=== PATIENT | female | born 1960 | race Caucasian/White ===

== ENCOUNTER 2025-01-02 15:02 | Outpatient (CLI) | payer BC, SELFPAY ==
--- NOTE | 2025-01-02 15:30 | ECG_ITS ---
Test Date: 2025-01-02 15:16:31 Measurements Intervals [facility] Rate: 82 P: 62 OK: 144 QRS: 18 QRSD: 82 T: 19 QT: 344 QTc: 404 Interpretive Statements SINUS RHYTHM EARLY PRECORDIAL R/S TRANSITION LOW QRS VOLTAGE IN PRECORDIAL LEAD BORDERLINE ST-T WAVE ABNORMALITY- ANT/INF LEADS BASELINE ARTIFACT- I, II, III, AVR, AVL, AVF BORDERLINE ECG No previous ECG available for comparison Electronically Signed On 01-02-2025 15:21:47 SENIOR SOUS CHEF by Balaji Kelley D.O.
[2025-01-02 15:53] LABS: Anion Gap 8 mmol/L (4-12); Blood Urea Nitrogen 19 mg/dL (7-17); Carbon Dioxide 30 mmol/L (22-30); Chloride 100 mmol/L (98-107); Estimated Glomerular Filt Rate 51; Glucose 47 mg/dL (65-110); Potassium 4.1 mmol/L (3.4-5.0); Sodium 138 mmol/L (137-145)
--- OUTSIDE RECORDS SUMMARY | 2025-01-02 17:53 | XMS_ITS | Patient Health Record ---
Author Organization [facility] Address [address], [place] [address] Support Name Relationship Address Phone Brittnee Vargas Guarantor Unknown [phone] Reason For Referral No Information Medications Medication SIG (Take, Route, Frequency, Duration) Notes Start Date End Date Status Levothyroxine Sodium 88 MCG TAKE ONE TABLET BY MOUTH ONCE DAILY Oral 03/01/2015 Active Aspirin 81 81 MG take 1 tablet (81 mg) by oral route once daily Oral 1 for 90 Active Vitamin D3 1000 UNIT take 1 capsule by oral route daily Oral 1 for 90 *Pick strength-form from [employer] for eRX* Active metFORMIN HCl ER 500 MG TAKE FOUR TABLETS BY MOUTH EVERY DAY Oral 02/19/2015 Active Acidophilus take 1 capsule by oral route daily Oral 1 for 90 Active Immunizations Vaccine Route Administration Date Status Comme nts Infuenza, trivalent, recombinant, preservative free Unknown 09/22/2005 Administered migrated LegPa tid= [id number] Date=09/22/2005 Vac= Influenza Problems Problem Type SNOMED Code ICD Code Onset Dates Problem Status W/U Status Risk Notes Problem Hypothyroidism (53798179) Hypothyroidism, unspecified (E03.9) Active confirmed Problem Vitamin D deficiency (07527829) Vitamin D deficiency, unspecified (E55.9) 08/05/20 12 Active confirmed Problem Type II diabetes mellitus without complication (932847034) Type 2 diabetes mellitus without complications (E11.9) 02/02/20 05 Active confirmed Problem Hyperlipidemia (55847763) Hyperlipidemia, unspecified (E78.5) 08/05/20 12 Active confirmed Plan Of Treatment No Information Insurance Providers Payer Name Payer Address Payer Phone Subscriber Number Group Number Insured Name Patient Relationship to Insured Coverage Start Date Coverage End Date DO NOT USE [id number] Brittnee Vargas Self - patient is the insured 5 [facility] [employer] [address] [place] [address] [id number] AliciaBrittnee Self - patient is the insured 2 4 DO NOT USE [id number] AliciaBrittnee Self - patient is the insured 1 DO NOT USE [id number] AliciaBrittnee Self - patient is the insured
--- OUTSIDE RECORDS SUMMARY | 2025-01-02 17:54 | XMS_ITS | Clinical Summary ---
Author Organization [facility] Address [address] [place] [address] Care Team Providers Care Spanish Language Lecturer Name Role Phone Izabella Pan THREAD MACHINE OPERATOR Primary Care Provider Allergies Active Allergy Reactions Criticality Noted Date Comments Sulfa Antibiotics Vomiting,Unknown 02/01/2005 Medications glipiZIDE XL 2.5 MG 24 hr tablet TAKE 2 TABLETS BY MOUTH ONCE DAILY IN THE MORNING 06/20/20 20 Active RELION PEN NEEDLES 32G X 4 MM Misc daily. 06/13/20 20 Active INSULIN SYRINGE .5CC/29G 29G X 1/2 0.5 ML Misc 08/05/20 12 Active levothyroxine 88 MCG tablet Take 1 tablet (88 mcg total) by mouth daily. 06/13/20 Active metFORMIN ER 500 MG 24 hr tablet Take 4 tablets (2,000 mg total) by mouth daily. 06/20/20 20 Active insulin glargine 100 UNIT/ML injection (PEN) Inject 22 Units into the skin nightly at bedtime. Takes in the morning Active vitamin D3, cholecalcifer ol, 1000 UNIT Tab tablet Take 1 tablet (25 mcg total) by mouth daily. Active LEVEMIR FLEXPEN 100 UNIT/ML PEN INJECT 22 UNITS SUBCUTANEOUSLY IN THE MORNING 11/26/19 24 Active ondansetron (ZOFRAN) 4 MG tabletIndicat ions:Nausea Take 1 tablet (4 mg total) by mouth every 8 (eight) hours as needed for Nausea. 10 tablet 09/13/20 24 Active meclizine (ANTIVERT) 25 MG tabletIndicat ions:Episodic peripheral vertigo Take 1 tablet (25 mg total) by mouth every 8 (eight) hours as needed (vertigo). 30 tablet 11/03/20 24 Active cefdinir (OMNICEF) 300 MG Cap capsule Take 1 capsule (300 mg total) by mouth 2 (two) times daily. 20 capsule 11/03/20 24 2024 Discontinued cephALEXin (KEFLEX) 500 MG capsuleIndica tions:Acute cystitis with hematuria Take 1 capsule (500 mg total) by mouth 2 (two) times daily for 3 days. 6 capsule 12/05/19 25 2024 Active Problems Problem Noted Date Diagnosed Date Hypothyroidism 12/03/2012 Type 2 diabetes mellitus ([facility]) 12/03 Encounters Date Type Department Care Team Description 12/06/2024 2:06 PM FIXED INCOME TRADING VICE PRESIDENT - 12/06/2024 11:59 PM FIXED INCOME TRADING VICE PRESIDENT Hospital Encounter [facility] [address] [address] Hector Ho MD Discharge Disposition: Home or Self Care (Routine Discharge) 12/05/2024 2:00 PM FIXED INCOME TRADING VICE PRESIDENT Office Visit [facility] [address] [place] [address] Hector Ho MD Urine (Pt is here for a possible UTI) 12/05/2024 Travel 11/17/2024 11:08 AM FIXED INCOME TRADING VICE PRESIDENT - 11/17/2024 11:59 PM FIXED INCOME TRADING VICE PRESIDENT Hospital Encounter [facility] [address] [place] [address] Izabella Pan FNP Discharge Disposition: Home or Self Care (Routine Discharge) 11/17/2024 Travel 11/15/2024 Telephone [facility] [address] [place] [address] Izabella Pan FNP Question 11/03/2024 6:09 AM FIXED INCOME TRADING VICE PRESIDENT - 11/03/2024 9:44 AM FIXED INCOME TRADING VICE PRESIDENT Emergency [facility] [address] [place] [address] Camilo Meier MD Gomez, Philip Gabriel, MD Back Pain (Abdominal pain) Discharge Disposition: Home or Self Care (Routine Discharge) 11/03/2024 Telephone [facility] [address] [place] [address] Izabella Pan FNP Work Excuse (Work excuse note) 11/03/2024 Travel 11/01/2024 2:34 PM FIXED INCOME TRADING VICE PRESIDENT - 11/01/2024 11:59 PM FIXED INCOME TRADING VICE PRESIDENT Hospital Encounter [facility] [address] [place] [address] Linda Simons FNP Discharge Disposition: Home or Self Care (Routine Discharge) 10/31/2024 4:20 PM FIXED INCOME TRADING VICE PRESIDENT Office Visit [address] [place] [address] Linda Simons FNP Back Pain; Dysuria (4 days//Pt started AZO 3 days ago. Took it yesterday morning for the last time. ) 10/31/2024 Travel 10/10/[address] [place] [address] Izabella aPn FNP Returned Call 10/07/2024 5:15 AM FIXED INCOME TRADING VICE PRESIDENT - 10/07/2024 11:59 PM FIXED INCOME TRADING VICE PRESIDENT Hospital Encounter [facility] [address] [place] [address] Izabella Pan FNP Discharge Disposition: Home or Self Care (Routine Discharge) 10/06/2024 1:20 PM FIXED INCOME TRADING VICE PRESIDENT Office Visit [address] [place] [address] Izabella Pan FNP Burning With Urination (Burning with urination, started today, some chills, no other symptoms) 10/06/2024 Travel 10/06/[address] [place] [address] Izabella Pan FNP Concerns from Last 3 Months Immunizations Name Administration Dates Next Due Influenza (Generic) 09/11/2014,09/23/2013,2011 MMR 09/06/2015 Family History Medical History Relation Comments Breast Cancer Sister Relation Status Comments Sister Social History Tobacco Use Types Packs/Day Years Used Date Smoking Tobacco: Never Smokeless Tobacco: Never Alcohol Use Standard Drinks/Week Comments Not Currently 0 (1 standard drink = 0.6 oz pur e alcohol) PHQ-2 Answer Date Recorded Patient Health Questionnaire-2 Score 0 09/08/2024 Comments No Sex and Gender Information Value Date Recorded Sex Assigned at Female 12/05/2024 2:37 PM FIXED INCOME TRADING VICE PRESIDENT Legal Sex Female 7:37 PM CDT Gender Identity Not on file Sexual Orientation Not on file Last Filed Vital Signs Vital Sign Reading Time Taken Comments Blood Pressure 126/74 12/05/2024 1:59 PM FIXED INCOME TRADING VICE PRESIDENT Pulse 76 12/05/2024 1:59 PM FIXED INCOME TRADING VICE PRESIDENT Temperature 37 C (98.6 F) 12/05/2024 1:59 PM FIXED INCOME TRADING VICE PRESIDENT Respiratory Rate 16 12/05/2024 1:59 PM FIXED INCOME TRADING VICE PRESIDENT Oxygen Saturation 100% 12/05/2024 1:59 PM FIXED INCOME TRADING VICE PRESIDENT Inhaled Oxygen Concentration - - Weight 66.7 kg (147 lb) 12/05/2024 1:59 PM FIXED INCOME TRADING VICE PRESIDENT Height 170.2 cm (5' 7 ) 12/05/2024 1:59 PM FIXED INCOME TRADING VICE PRESIDENT Body Mass Index 23.02 12/05/2024 1:59 PM FIXED INCOME TRADING VICE PRESIDENT Plan of Treatment Health Maintenance Due Date Last Done Comments Cervical Cancer Screening Pap Smear (Age 30 to 64) Every 3 Years 1960 Colorectal Cancer Screening Colonoscopy (10 Years) 1960 Kidney Health Evaluation 1960 Hemoglobin A1C 1960 Lipid Panel 1960 Annual Physical 1963 Pneumococcal Vaccine: Pediatrics (0 to 5 Years) and At-Risk Patients (6 to 64 Years) (1 of 2 - PCV) 1966 Hepatitis C 1978 DTaP, Tdap and Td Vaccines (1 - Tdap) 1979 Cervical Cancer Screening Pap with HPV Testing (Age 30 to 64) Every 5 Years 1990 Cervical Cancer Screening with HPV 1990 Zoster Vaccines (1 of 2) 2010 RSV Immunization or 60+ Years (1 - Risk 60-74 years 1-dose series) 2020 Diabetes: Retinopathy Eye Exam 04/05/2024 04/05/2022 COVID-19 Vaccine (1 - season) 2024 Influenza Adult (#1) 2024 09/11/2014, 09/23/2013, 09/12/2012, Additional history exists PHQ-2 (Physician [place]) 11/16/2024 09/08/2024 Mammogram Screening 09/16/2026 09/16/2024, 09/14/2023, 09/11/2022, Additional history exists Meningococcal B Vaccine Aged Out No l onger eligible based on patient's age to complete this topic Meningococcal Vaccine Aged Out No taryn marisol eligible based on patient's age to complete this topic RSV Immunizations Under 20 Months Aged Out No longer eligible based on patient's age to complete this topic Procedures Procedure Name Priority Date/Time Associated Diagnosis Comments URINE BACTERIA CULTURE Routine 5 2:00 PM FIXED INCOME TRADING VICE PRESIDENT Urine frequency Acute cystitis with hematuria URINALYSIS AUTO DIP Routine 12/05/2024 Urine frequency HC URNLS DIP STICK/TABLET RGNT AUTO W/O MICRO Routine 11/17/2024 11:20 AM FIXED INCOME TRADING VICE PRESIDENT Bilateral hydronephrosis Renal impairment URINE BACTERIA CULTURE Routine 5 10:20 AM FIXED INCOME TRADING VICE PRESIDENT Bilateral hydronephrosis Renal impairment CT ABD+PEL WO CON STAT 11/03/2024 7:4 5 AM FIXED INCOME TRADING VICE PRESIDENT COMPREHENSIVE METABOLIC PANEL STAT 11/03/2024 6:29 AM FIXED INCOME TRADING VICE PRESIDENT CBC W/DIFF AUTOMATED STAT 11/03/2024 6:29 AM FIXED INCOME TRADING VICE PRESIDENT URINE BACTERIA CULTURE Routine 4 12:00 PM FIXED INCOME TRADING VICE PRESIDENT Dysuria Acute cystitis without hematuria URINALYSIS AUTO DIP Routine 10/31/2024 Dysuria URINE BACTERIA CULTURE Routine 4 1:30 PM FIXED INCOME TRADING VICE PRESIDENT Acute cystitis with hematuria URINALYSIS AUTO DIP Routine 10/06/2024 Burning with urination MG SCREENING W DELGADO RENAN DIGI Routine 09/16/2024 4:00 PM CDT Screening mammogram, encounter for DIABETIC RETINOPATHY EXAM (NEGATIVE)(SCAN ORDER) Routine 04/05/2022 from Last 3 Months or Most Recently Relevant to Health Maintenance Results * URINE BACTERIA CULTURE (12/06/2024 2:00 PM FIXED INCOME TRADING VICE PRESIDENT) Only the most recent of4 resultswithin the time period is included. SPEC DESCRIPTION URINE CLEAN CATCH 12/06/2024 2:06 PM FIXED INCOME TRADING VICE PRESIDENT [facility] SPECIAL REQUESTS NO SPECIAL REQUEST 12/06/2024 2:06 PM FIXED INCOME TRADING VICE PRESIDENT [facility] CULTURE RESULT NO GROWTH 2 DAYS 12/08/2024 7:46 AM FIXED INCOME TRADING VICE PRESIDENT [facility] URINE SPECIMEN OBTAINED BY CLEAN CATCH PROCEDURE / Unknown 12/06/2024 2:00 PM FIXED INCOME TRADING VICE PRESIDENT 12/06/2024 2:07 PM FIXED INCOME TRADING VICE PRESIDENT us Hector Ho MD MICROBIOLOGY - GENERAL ORDER ALMAS Final Result [facility] [address] [place] [address], [place] [phone] [facility] [address] [place] [address] [place] [address], [place] * (ABNORMAL) URINALYSIS AUTO DIP (12/05/2024) Only the most recent of3 resultswithin the time period is included. COLOR (U) YELLOW YELLOW [facility] (201), [place] TRANSPARENCY [facility]AR [facility] ([facility])[place] GLUCOSE (U) >=1000 mg/dl(A) NEGATIVE MG/DL [facility] (201)[place] BILIRUBIN (U) NEGATIVE NEGATIVE -A [facility] (201), [place] KETONES MG/DL (U) NEGATIVE NEGATIVE MG/DL [facility] (201), [place] SPECIFIC GRAVITY (U) 1.015 1.001 - 1.035 [facility] (201)[place] BLOOD (U) LARGE (Non Hemolyzed, Intact, About 250 rbc/uL)(A) NEGATIVE [facility] (201)[place] U PH 5.5 5.0 - 9.0 [facility] ([facility])[place] PROTEIN (U) 3+ (>=300)(A) NEGATIVE mg/dL [facility] (201)[place] UROBILINOGEN 0.2 0.2 - 1.0 EU/dL = mg/dL [facility] (201)[place] NITRITES POSITIVE(A) NEGATIVE MG/DL [facility] (201) [place] LEUKOCYTES (U) 1+ (SMALL)(A) NEGATIVE [facility] (201)[place] URINE SPECIMEN OBTAINED BY CLEAN CATCH PROCEDURE / Unknown 12/05/2024 us Hector Ho MD URINE ORDERABLES Final Resul t [facility] (201), [place] [address] [id number], * (ABNORMAL) URINALYSIS (11/17/2024 11:20 AM FIXED INCOME TRADING VICE PRESIDENT) SPECIMEN TYPE URINE 11/17/2024 11:24 AM FIXED INCOME TRADING VICE PRESIDENT [facility] COLOR (U) LIGHT YELLOW 11/17/2024 2:59 PM FIXED INCOME TRADING VICE PRESIDENT [facility] TRANSPARENCY CLEAR 11/17/2024 2:59 PM FIXED INCOME TRADING VICE PRESIDENT [facility] SPECIFIC GRAVITY (U) 1.014 1.001 - 1.030 11/17/2024 2:59 PM FIXED INCOME TRADING VICE PRESIDENT [facility] U PH 5.5 5.0 - 9.0 11/17/2024 2:59 PM FIXED INCOME TRADING VICE PRESIDENT [facility] LEUKOCYTES (U) 500(A) NEGATIVE 11/17/2024 2:59 PM FIXED INCOME TRADING VICE PRESIDENT [facility] NITRITES NEGATIVE NEGATIVE 11/17/2024 2:59 PM FIXED INCOME TRADING VICE PRESIDENT [facility] PROTEIN RANDOM (U) NEGATIVE <30 MG/DL 11/17/2024 2:59 PM FIXED INCOME TRADING VICE PRESIDENT [facility] GLUCOSE (U) 1000(A) NORMAL MG/DL 11/17/2024 2:59 PM FIXED INCOME TRADING VICE PRESIDENT [facility] KETONES MG/DL (U) NEGATIVE NEGATIVE MG/DL 11/17/2024 2:59 PM FIXED INCOME TRADING VICE PRESIDENT [facility] UROBILINOGEN NORMAL NORMAL MG/DL 11/17/2024 2:59 PM FIXED INCOME TRADING VICE PRESIDENT [facility] BILIRUBIN (U) NEGATIVE NEGATIVE MG/DL 11/17/2024 2:59 PM FIXED INCOME TRADING VICE PRESIDENT [facility] BLOOD (U) NEGATIVE NEGATIVE 11/17/2024 2:59 PM FIXED INCOME TRADING VICE PRESIDENT [facility] WBC/HPF 6(H) <6 /HPF 11/17/2024 2:59 PM FIXED INCOME TRADING VICE PRESIDENT [facility] RBC/HPF 1 <6 /HPF 11/17/2024 2:59 PM FIXED INCOME TRADING VICE PRESIDENT [facility] SQUAMOUS EPITHELIALS RARE /HPF 11/17/2024 2:59 PM FIXED INCOME TRADING VICE PRESIDENT [facility] URINE SPECIMEN OBTAINED BY CLEAN CATCH PROCEDURE / Unknown 11/17/2024 11:20 AM FIXED INCOME TRADING VICE PRESIDENT Izabella Pan THREAD MACHINE OPERATOR URINE ORDERABLES Final Result [facility] [address] [place] [address], [place] [phone] [place] [address], [place] * CT ABD+PEL WO CON (11/03/2024 7:45 AM FIXED INCOME TRADING VICE PRESIDENT) Anatomical Region Laterality Modality Abdomen Computed Tomogra phy 11/03/2024 8:25 AM FIXED INCOME TRADING VICE PRESIDENT Impressions 11/03/2024 8:42 AM FIXED INCOME TRADING VICE PRESIDENT =====IMPRESSION:===== 1. Bilateral hydronephrosis, greater on the left without hydroureter. No definite urinary tract stone is seen. Etiology and significance is uncertain. Bilateral UPJ obstruction or other etiologies possible. 2. Slight prominence and serpiginous position of the cecum. This also is of uncertain significance and etiology. Follow-up or other additional evaluation could be considered. Ordered By: CAMILO MEIER Interpreted By: Raghav Mohamud MD, 11/03/2024 8:25 AM Narrative 11/03/2024 8:42 AM FIXED INCOME TRADING VICE PRESIDENT [address] [place] [address] EXAMINATION: CT Abdomen and Pelvis without contrast EXAM DATE/TIME: 11/03/2024 7:25 AM REASON FOR EXAM: Abdominal pain, left flank pain COMPARISON: 12/29/2009 TECHNIQUE: Axial CT images of the abdomen and pelvis are obtained without the use of IV contrast agent. Subsequent coronal and sagittal reformatted sequences are created for evaluation. A dose lowering technique was used for this procedure, which may include, but is not limited to, dose reduction technique, automated exposure control, the use of iterative reconstruction, and ALARA (As Low As Reasonably Achievable) / Image Gently techniques. FINDINGS: No definite renal stone is seen. Bilateral hydronephrosis however is noted which is moderate. This is slightly greater on the left side. No obstructive ureteral pelvic junction stone is seen. There is no hydroureter noted although the ureters are difficult to completely visualize. No evidence of stone in the urinary bladder is seen. Lung Bases: No pleural effusions or consolidations. Liver:Unremarkable. Gallbladder and Biliary system:No CT evidence of cholelithiasis. No biliary ductal dilatation. Pancreas:Unremarkable. Spleen:No splenomegaly. Kidneys:As described above Ureters and bladder: As described above Adrenals:Normal. Bowel:Colonic and rectal stool is seen. The cecum is somewhat capacious and serpiginous possibly. Mild prominence is possible. No small bowel dilatation is seen.The stomach, duodenum, and viewed portions of the esophagus are unremarkable.The appendix is visualized and is within normal limits. Aorta and Retroperitoneum:No enlarged lymph nodes. Aorta is not aneurysmal. Pelvic Organs:Not visualized Bone/Musculoskeletal: No aggressive osseous lesions. Ascites: None Additional Findings: No definite hernia seen. Procedure Note Raghav Mohamud MD - 11/03/[address] [place] [address] EXAMINATION: CT Abdomen and Pelvis without contrast EXAM DATE/TIME: 11/03/2024 7:25 AM REASON FOR EXAM: Abdominal pain, left flank pain COMPARISON: 12/29/2009 TECHNIQUE: Axial CT images of the abdomen and pelvis are obtained withoutthe use of IV contrast agent. Subsequent coronal and sagittal reformattedsequences are created for evaluation. A dose lowering technique was usedfor this procedure, which may include, but is not limited to, dosereduction technique, automated exposure control, the use of iterativereconstruction, and ALARA (As Low As Reasonably Achievable) / Image Gentlytechniques. FINDINGS: No definite renal stone is seen. Bilateral hydronephrosishowever is noted which is moderate. This is slightly greater on the leftside. No obstructive ureteral pelvic junction stone is seen. There is nohydroureter noted although the ureters are difficult to completelyvisualize. No evidence of stone in the urinary bladder is seen. Lung Bases: No pleural effusions or consolidations. Liver:Unremarkable. Gallbladder and Biliary system:No CT evidence of cholelithiasis. Nobiliary ductal dilatation. Pancreas:Unremarkable. Spleen:No splenomegaly. Kidneys:As described above Ureters and bladder: As described above Adrenals:Normal. Bowel:Colonic and rectal stool is seen. The cecum is somewhat capaciousand serpiginous possibly. Mild prominence is possible. No small boweldilatation is seen.The stomach, duodenum, and viewed portions of theesophagus are unremarkable.The appendix is visualized and is within normallimits. Aorta and Retroperitoneum:No enlarged lymph nodes. Aorta is notaneurysmal. Pelvic Organs:Not visualized Bone/Musculoskeletal: No aggressive osseous lesions. Ascites: None Additional Findings: No definite hernia seen. =====IMPRESSION:===== 1. Bilateral hydronephrosis, greater on the left without hydroureter. Nodefinite urinary tract stone is seen. Etiology and significance isuncertain. Bilateral UPJ obstruction or other etiologies possible. 2. Slight prominence and serpiginous position of the cecum. This also isof uncertain significance and etiology. Follow-up or other additionalevaluation could be considered. Ordered By: CAMILO MEIER Interpreted By: Raghav Mohamud MD, 11/03/2024 8:25 AM us Camilo Meier MD CT Final Result * (ABNORMAL) COMPREHENSIVE METABOLIC PANEL (11/03/2024 6:29 AM FIXED INCOME TRADING VICE PRESIDENT) [facility] Signature GLUCOSE 211(H) 70 - 99 MG/DL 11/03/2024 7:02 AM FIXED INCOME TRADING VICE PRESIDENT [facility] BUN 17 7 - 18 MG/DL 11/03/2024 7:02 AM [facility] CREATININE S/P/B 1.23(H) 0.50 - 1.20 MG/DL 11/03/2024 7:02 AM [facility] SODIUM S/P/B 136 136 - 145 MMOL/L 11/03/2024 7:02 AM [facility] POTASSIUM S/P/B 4.5 3.5 - 5.1 MMOL/L 11/03/2024 7:02 AM [facility] CHLORIDE S/P/B 101 100 - 108 MMOL/L 11/03/2024 7:02 AM [facility] CO2 26.4 21.0 - 32.0 MMOL/L 11/03/2024 7:02 AM [facility] CALCIUM S/P/B 9.5 8.5 - 10.1 MG/DL 11/03/2024 7:02 AM [facility] BILIRUBIN TOTAL S/P/B 0.6 0.2 - 1.2 MG/DL 11/03/2024 7:02 AM [facility] Comment: THIS ASSAY IS NOT RECOMMENDED FOR PATIENTS UNDERGOING TREATMENT WITH ELTROMBOPAG DUE TO THE POTENTIAL FOR FALSELY ELEVATED RESULTS. TOTAL PROTEIN S/P/B 7.2 6.4 - 8.2 G/DL 11/03/2024 7:02 AM [facility] ALBUMIN S/P/B 3.8 3.4 - 5.0 G/DL 11/03/2024 7:02 AM [facility] AST 15 15 - 37 U/L 11/03/2024 7:02 AM [facility] ALT 21 14 - 55 U/L 11/03/2024 7:02 AM [facility] ALKALINE PHOSPHATASE S/P/B 100 50 - 136 U/L 11/03/2024 7:02 AM [facility] ANION GAP 8.6 5.0 - 15.0 MMOL/L 11/03/2024 7:02 AM [facility] BUN CREATININE RATIO 13.8 6 - 26 11/03/2024 7:02 AM [facility] A/G RATIO 1.1 1.0 - 2.5 RATIO 11/03/2024 7:02 AM [facility] GFR ESTIMATE 49(L) >90 ML/MIN/1.7 3 M2 11/03/2024 7:02 AM [facility] Comment: NOTE: eGFR is not calculated for patients <18 years of age. This is an estimated GFR calculation using the new CKD EPI creatinine equation without race and so does not require a correction factor for race. This estimated GFR should not be used for calculating drug doses. 11/03/2024 6:29 AM FIXED INCOME TRADING VICE PRESIDENT us Camilo Meier MD LABORATORY Final Result [address] [place] [address], * (ABNORMAL) CBC W/DIFF AUTOMATED (11/03/2024 6:29 AM FIXED INCOME TRADING VICE PRESIDENT) WBC 8.19 4.50 - 11.00 x10'3/uL 11/03/2024 6:38 AM [facility] RBC 4.39 4.00 - 5.20 x10'6/uL 11/03/2024 6:38 AM [facility] HGB 13.1 12.0 - 16.0 G/DL 11/03/2024 6:38 AM [facility] HCT 37.5(L) 38.0 - 48.0 % 11/03/2024 6:38 AM [facility] MCV 85.4 80.0 - 100.0 FL 11/03/2024 6:38 AM [facility] MCH 29.8 26.0 - 34.0 PG 11/03/2024 6:38 AM [facility] MCHC 34.9 31.0 - 37.0 G/DL 11/03/2024 6:38 AM [facility] RDW 12.4 11.6 - 14.8 % 11/03/2024 6:38 AM [facility] PLT 287 130 - 400 x10'3/uL 11/03/2024 6:38 AM [facility] MPV 10.2 7.0 - 12.0 FL 11/03/2024 6:38 AM [facility] CBC COMMENT AUTOMATED RBC MORPHOLOGY AND PLATELET EVALUATION NORMAL 11/03/2024 6:38 AM [facility] NEUTROPHILS % 62.0 40.0 - 74.0 % 11/03/2024 6:38 AM [facility] LYMPHOCYTES % 26.7 14.0 - 46.0 % 11/03/2024 6:38 AM [facility] MONOCYTES % 7.6 4.0 - 13.0 % 11/03/2024 6:38 AM [facility] EOSINOPHILS 2.9 0.0 - 7.0 % 11/03/2024 6:38 AM [facility] BASOPHILS 0.6 0.0 - 3.0 % 11/03/2024 6:38 AM [facility] IMMATURE GRANS % 0.2 0.0 - 0.43 % 11/03/2024 6:38 AM [facility] NRBC % 0.0 % 11/03/2024 6:38 AM FIXED INCOME TRADING VICE PRESIDENT [facility] ABS. NEUTROPHILS TOTAL 5.07 1.69 - 7.81 x10'3/uL 11/03/2024 6:38 AM FIXED INCOME TRADING VICE PRESIDENT [facility] ABS. LYMPHOCYTES 2.19 0.21 - 5.42 x10'3/uL 11/03/2024 6:38 AM [facility] ABS. MONOCYTES 0.62 0.04 - 1.37 x10'3/uL 11/03/2024 6:38 AM FIXED INCOME TRADING VICE PRESIDENT [facility] ABS. EOSINOPHILS 0.24 0.00 - 0.68 x10'3/uL 11/03/2024 6:38 AM FIXED INCOME TRADING VICE PRESIDENT [facility] ABS. BASOPHILS 0.05 0.00 - 0.08 x10'3/uL 11/03/2024 6:38 AM [facility] ABS. IMMATURE GRANULOCYTES 0.02 0.00 - 0.06 x10'3/uL 11/03/2024 6:38 AM [facility] ABS. NUCLEATED RBC'S 0.00 0.00 - 0.01 x10'3/uL 11/03/2024 6:38 AM [facility] 11/03/2024 6:29 AM FIXED INCOME TRADING VICE PRESIDENT us Camilo Meier MD LABORATORY Final Result [address] [place] [address], [place] * MG SCREENING W DELGADO RENAN DIGI (09/16/2024 4:00 PM CDT) Anatomical Region Laterality Modality Breast Bilateral Computed Tomogra phy 09/19/2024 11:2 3 AM FIXED INCOME TRADING VICE PRESIDENT Impressions 09/20/2024 5:31 PM FIXED INCOME TRADING VICE PRESIDENT ===== IMPRESSION: ===== 1. Stable mammographic appearance with no new findings to suggest malignancy in either breast. Assessment: ACR BI-RADS 2 - BENIGN FINDING(S) Recommendation: 1:Routine Screening Bilateral Comments: Ordered By: JESSY PIEDRA Interpreted By: Juan Nuno, 09/19/2024 11:23 AM Narrative 09/20/2024 5:31 PM FIXED INCOME TRADING VICE PRESIDENT [address] [place] [address] EXAMINATION: Digital bilateral screening mammogram with 3-D tomosynthesis EXAM DATE/TIME: 09/16/2024 3:35 PM REASON FOR EXAM: Screening Mammogram Breast carcinoma in sister at age 40. COMPARISON: 09/11/2022. 09/14/2023 Technique: Digital screening mammography of both breasts was performed in addition to 3-D Tomosynthesis technique. This study was read with the assistance of a computer-aided detection system. Tissue density: The breasts are heterogeneously dense, which may obscure small masses. Findings: There is no new focal asymmetry, dominant mass lesion, area of skin thickening, or cluster of suspicious appearing calcifications in either breast to suggest malignancy. us Jessy iPedra MD MAMMO Final Result * DIABETIC RETINOPATHY EXAM (NEGATIVE)(SCAN) (04/05/2022) us Documents Scanned SCANNING Final Result [facility] from Last 3 Months or Most Recently Relevant to Health Maintenance Insurance [facility] Advance Directives Documents on File Type Date Recorded Patient Manager Operations And Procurement Expl anation Advance Directives and Living Will 12/11/2011 12:00 AM ADVANCED DIRECTIVES Care Teams Spanish Language Lecturer Relationship Specialty Start Date End Date Izabella Pan FNP [address] [place] [address] [place] [id number] PCP - General Nurse Practitioner Family 10/08/18
--- OUTSIDE RECORDS SUMMARY | 2025-01-02 17:54 | XMS_ITS ---
Author Organization [facility] Address [address] [facility] [address], [place] [address] Care Team Providers Care Driller'S Offsider Name Role Phone rlMigrsebastián, zcarlos amnuelProvider Unavailable Unav ailable Allergies Allergen (clinical drug ingredient) Drug/Non Drug Allergy documented on EMR Reaction Allergy Type Onset Date Status Substance with sulfonamide structure and antibacterial mechanism of action (substance) Sulfa Antibiotics Unknown Drug Allergy 02/01/2005 Active REASON FOR VISIT EMR-Ciro Medications Medication SIG (Take, Route, Frequency, Duration) [...] Oral 1 for 90 *Pick strength-form from [employer] for eRX* Active metFORMIN HCl ER 500 MG TAKE FOUR TABLETS BY MOUTH EVERY DAY Oral 02/19/2015 Active Acidophilus take 1 capsule by oral route daily Oral 1 for 90 Active Encounters Encounter Location Date Provider Diagnosis [facility] [address] [facility] [address], [place] [address] 09/06/2023 zzzzProvider zzzzMigration Plan Of Treatment No Information Progress Notes * Brittnee MAZA ADOB:1960 (64 yo F)Acc No.[id number]:09/06/2023 Patient: Bakari RANBrittnee :1960 A ge:62 Y S ex:Female Address:[address] [place] [address], [id number] Subjective: * Chief Complaints: * E MR-Ciro * Medical History: * Surgical History: * Hospitalization/Major Diagno stic Procedure: * Family History: F ather: Diabetes . P aternal Grandfather: Grandfather (paternal): Diabetes . S ister: Diabetes . * Social History: M igrated Social History: M igrated Social History: Substance Use :: Tobacco :: Former :: note : quit 20 years ago. * Medications: T akingAspirin 81 81 MG Tablet Delayed Release take 1 tablet (81 mg) by oral route once daily Oral 1 metFORMIN HCl ER 500 MG Tablet Extended Release 24 Hour TAKE FOUR TABLETS BY MOUTH EVERY DAY Oral Levothyroxine Sodium 88 MCG Tablet TAKE ONE TABLET BY MOUTH ONCE DAILY Oral Acidophilus Capsule take 1 capsule by oral route daily Oral 1 Vitamin D3 1000 UNIT Powder take 1 capsule by oral route daily Oral 1 , Notes to Pharmacist: *Pick strength-form from [employer] for eRX*Taking Aspirin 81 81 MG Tablet Delayed Release take 1 tablet (81 mg) by oral route once daily Oral 1 Taking metFORMIN HCl ER 500 MG Tablet Extended Release 24 Hour TAKE FOUR TABLETS BY MOUTH EVERY DAY Oral Taking Levothyroxine Sodium 88 MCG Tablet TAKE ONE TABLET BY MOUTH ONCE DAILY Oral Taking Acidophilus Capsule take 1 capsule by oral route daily Oral 1 Taking Vitamin D3 1000 UNIT Powder take 1 capsule by oral route daily Oral 1 , Notes to Pharmacist: *Pick strength-form from [employer] for eRX* * Allergies: S ulfa Antibiotics: Allergy - Onset Date 02/01/2005 Objective: * Vitals: * Physical Examination: Assessment: Plan: * Treatment: * Procedure Codes: * * Date:
--- OUTSIDE RECORDS SUMMARY | 2025-01-02 17:54 | XMS_ITS ---
Author Organization [facility] Address [address] [facility] [address] [place] [address] Care Team Providers Care Drafter Marine Name Role Phone zcarlos manuelMigrsebastián, zzzcliftonProvider Unavailable Unav ailable REASON FOR VISIT EMR-Ciro Encounters Encounter Location Date Provider Diagnosis [facility] [address] [facility] [address] [place] [address] 09/05/2023 zzzzProvider zzzzMigration Plan Of Treatment Medication Medication Name Sig Start Date Stop Date Notes Lantus SoloStar 100 UNIT/ML 30 units QD as directed Subcutaneous 10/14/2006 Levemir 100 unit/mL inject 16 units befo re breakfast and 16 units before dinner subcutaneous 1 for 05/24/2014 05/19/2015 Insulin Syringe 1/2 mL 29 x 1/2 use as directed bid miscellaneous for 07/27/2014 07/22/2015 Levothyroxine Sodium 88 MCG TAKE ONE TAB LET BY MOUTH EVERY DAY Oral for 05/29/2013 08/27/2013 Lantus 100 unit/mL INJECT DIRECTED 3 3 UNITS Q AM Subcutaneous for 01/12/2014 01/07/2015 Omeprazole 20 MG take 1 capsule (20 m g) by oral route once daily before a meal Oral 1 for Synthroid 150 MCG 1 Every Day Oral 12/01/2005 BD Disp Troy 30G X 1/2 USE TO GIVE LA NTUS SHOTS DAILY 07/21/2007 Glimepiride 2 MG take 1/2 tablet (1 m g) q AM Oral 1 for 08/05/2012 07/31/2013 Loestrin 1.5/30 (21) 1.5-30 MG-MCG 1 qd Oral 1 for 05/05/2012 06/04/2012 Actos 30 MG 1 Every Day Oral 12/03/2006 Synthroid 88 MCG 1 Every Day Oral for 05/05/20122012 metFORMIN HCl ER 500 MG take 2 tablets b y oral route once daily Oral 1 for 05/05/2012 04/30/2013 metFORMIN HCl ER (OSM) 500 MG take 4 tab lets by oral route daily Oral 1 for 08/05/2012 07/31/2013 [facility] Vitamin B12 1000 MCG weekly Oral 1 for 05/16/2014 0 05/11/2015 Progress Notes * Brittnee MAZA ADOB:1960 (64 yo F)Acc No.[id number]:09/05/2023 Patient: Brittnee OLGUIN :1960 A ge:62 Y S ex:Female Address:[address] [place] [address] * Refills Stop Actos Tablet, 30 MG, Oral, 30.00, 1 Every Day Stop [facility] Vitamin B12 Tablet, 1000 MCG, Oral, 180, take 2 tablets by oral route daily, 1, 90 Stop Lantus SoloStar Solution Pen-injector, 100 UNIT/ML, Subcutaneous, 10.00, 30 units QD as directed Stop Levothyroxine Sodium Tablet, 88 MCG, Oral, 90, TAKE ONE TABLET BY MOUTH EVERY DAY Stop Lantus Solution, 100 unit/mL, Subcutaneous, 80, INJECT DIRECTED 33 UNITS Q AM, 90 Stop Insulin Syringe Syringe, 1/2 mL 29 x 1/2 , Miscellaneous, 100, USE ONE SYRINGE EVERY DAY Stop Glimepiride Tablet, 2 MG, Oral, 90, take 1 tablet (2 mg) by oral route once daily, , 90 Stop Glimepiride Tablet, 2 MG, Oral, 90, take 1/2 tablet (1 mg) q AM, , 90 Stop Loestrin 1.5/30 (21) Tablet, 1.5-30 MG-MCG, Oral, 30, 1 qd, 1, 30 Stop Levothyroxine Sodium Tablet, 88 MCG, Oral, 90, TAKE ONE TABLET BY MOUTH EVERY DAY, 90 Stop metFORMIN HCl ER Tablet Extended Release 24 Hour, 500 MG, Oral, 90, take 1 tablet (500 mg) by oral route once daily, Stop Lantus Solution, 100 unit/mL, Subcutaneous, 10.00, 30 units QAM, 30 Stop Lantus Solution, 100 unit/mL, Subcutaneous, 10.00, 30 units QAM, 90 Stop Lantus Solution, 100 unit/mL, Subcutaneous, 80, INJECT DIRECTED 30 UNITS DAILY Stop [facility] Vitamin B12 Tablet, 1000 MCG, Oral, 180, weekly, Stop BD Disp Troy Miscellaneous, 30G X 1/2, 100.00, USE TO GIVE LANTUS SHOTS DAILY Stop Insulin Syringe syringe, 1/2 mL 29 x 1/2 , miscellaneous, 2, use as directed bid, 90 Stop Omeprazole Capsule Delayed Release, 20 MG, Oral, 90, take 1 capsule (20 mg) by oral route once daily before a meal, Stop Synthroid Tablet, 150 MCG, Oral, 30.00, 1 Every Day Stop metFORMIN HCl ER Tablet Extended Release 24 Hour, 500 MG, Oral, 360, TAKE FOUR TABLETS BY MOUTH EVERY DAY Stop Levemir solution, 100 unit/mL, subcutaneous, 1, inject 16 units before breakfast and 16 units before dinner, Stop Loestrin 1.5/30 (21) Tablet, 1.5-30 MG-MCG, Oral, 0, take 10 mg q day, , 30 Stop Glimepiride Tablet, 2 MG, Oral, 90, take 1 tablet (2 mg) q AM, Stop Lantus Solution, 100 unit/mL, Subcutaneous, 10.00, 30 units QAM, 90 Stop Synthroid Tablet, 88 MCG, Oral, 30.00, 1 Every Day, 30 Stop Synthroid Tablet, 88 MCG, Oral, 90, 1 Every Day, 90 Stop metFORMIN HCl ER Tablet Extended Release 24 Hour, 500 MG, Oral, 180, take 2 tablets by oral route once daily, Stop metFORMIN HCl ER (OSM) Tablet Extended Release 24 Hour, 500 MG, Oral, 360, take 4 tablets by oral route daily, Stop Lantus Solution, 100 unit/mL, Subcutaneous, 10.00, 20 units QAM, 90 Stop metFORMIN HCl ER Tablet Extended Release 24 Hour, 500 MG, Oral, 360, TAKE FOUR TABLETS BY MOUTH EVERY DAY Subjective: * Chief Complaints: * E MR-Ciro * Medical History: * Surgical History: * Hospitalization/Major Diagno stic Procedure: * Medications: Objective: * Vitals: * Physical Examination: Assessment: Plan: * Treatment: * Procedure Codes: * * Date:
== END 2025-01-02 15:03 | disposition home or self-care (01) ==
LOC: ANHSURGERY 15:11
PROVIDERS: Anesthesiology; PCP Nurse Practitioner; Visit Provider Urology
DX: E11.9 Type 2 diabetes mellitus without complications (principal); Z01.818 Encounter for other preprocedural examination; R94.31 Abnormal electrocardiogram [ECG] [EKG]
CPT/HCPCS: 36415; 80048; 93005

== ENCOUNTER 2025-01-05 00:38 | Day surgery (SDC) | payer BC, SELFPAY ==
--- NOTE | 2024-12-28 11:44 | P.HP_ITS ---
History of Present Illness History of Present Illness Consent: Risks, benefits, and alternatives have been discussed and questions answered. Patient agrees to proceed with procedure. Chief complaint: Bryon Hydronephrosis Narrative: Brittnee Vargas is a 64 year old female Who was initially seen in our practice is in the ER visit at [facility] when she presented with atypical abdominal and back pain. She had a history of recurrent urinary tract infect ion. CT scan the abdomen pelvis without contrast showed moderate bilateral hydronephrosis (R>L).. She had no childhood history of urinary tract infection. Her serum creatinine was 1.23. Subsequent voiding cystogram showed no reflux. Lasix renal scan showed equal function bilaterally with a T1 half on the right of 81 minutes and left 23 minutes. after careful review of the studies and discussion of options she presents today for cystoscopy with bilateral retrograde pyelography, right ureteroscopy with possible biopsy. Review of Systems 2 Review of Systems: All systems reviewed & are unremarkable except as noted in HPI and below Meds Home Medications and Allergies Home Medications ?Medication ?Instructions ?Recorded ?Confirmed ?Type cholecalciferol (vitamin D3) 25 1,000 unit PO DAILY 12/28/24 12/28/24 History mcg (1,000 unit) capsule (Vitamin D3) glipizide 2.5 mg tablet, extended 5 mg PO DAILY 12/28/24 12/28/24 History release 24 hr insulin detemir U-100 100 unit/mL 22 unit subcut QAM 12/28/24 12/28/24 History (3 mL) subcutaneous pen levothyroxine 88 mcg tablet 88 mcg PO DAILY 12/28/24 12/28/24 History metformin 500 mg tablet,extended 2,000 mg PO DAILY 12/28/24 12/28/24 History release 24 hr Allergies Allergy/AdvReac Type Severity Reaction Status Date / Time Sulfa (Sulfonamide AdvReac Severe N/V Unverified 12/28/24 11:36 Antibiotics) Exam Const: General: no acute distress Resp: Effort & Inspection: normal respiratory effort GI: Inspection: non-distended GI Palp: No abdominal tenderness and No Guarding due to palpation present (GI) Auscultation: normal bowel sounds Assessment and Plan Assessment and plan (1) Bilateral hydronephrosis: Code(s): N13.30 - Unspecified hydronephrosis Status: Acute Assessment and Plan: * Cystoscopy, bilateral retrograde pyelography, right ureteroscopy with possible biopsy and possible stent placement
[2024-12-28 11:46] VITALS: BMI 24.3
--- NOTE | 2024-12-28 11:48 | PC.NURSE ---
Report to the Outpatient Waiting Room, entrance under the green pavilion located off [facility], at time _0600_ on date _[id number]_. Planned Procedure Time: _0730_.? Time changes happen often and if your time is changed the preop area will call you the afternoon before. - You and your visitor will be asked to self-screen and do not enter if you have any COVID symptoms. Please call surgeon if you need to reschedule. - A mask is optional within the hospital at this time. Patients may have clear liquids (water, carbonated beverages, clear teas, apple juice) until 3 hours prior to surgery with a maximum of 20 ounces. - No food from midnight until time of surgery and no smoking, or chewing tobacco (or any form of nicotine). No chewing gum, candy or mints. Take only the following medications with a SIP of water on the morning of surgery: ___Levothyroxine____ DO NOT STOP ANY OF YOUR OTHER PRESCRIPTION MEDICATIONS PRIOR TO SURGERY EXCEPT THE FOLLOWING Hold all vitamins and supplements for 3 days per anesthesiologist. Medications to discontinue per physician Date to take last dctt__[id number] Please no make-up, nail bolivian, hairspray, perfume, deodorant, or body powder the day of surgery.? No jewelry (including any body piercings) or valuables the day of surgery, leave them at home.? Please take a shower or bath the night before, or the morning of, surgery with an antibacterial soap.? Wear comfortable, loose fitting clothing.? - Jewelry must be removed prior to entering the operating room.? Rings and piercings that are not removed may be cut off. - The hospital will not accept responsibility for valuables.? - Please leave all valuables, including medications, at home the day of surgery. If you are going home after surgery, a licensed tanker driver must drive you home.? - NO public transportation without another adult if you receive anesthesia. - We recommend that an adult stay with you for 24 hours following discharge. - We also recommend that you do not drive, make important decision, drink alcoholic beverages, or take any drugs that were not prescribed by your health care provider for at least 24 hours after your discharge time. Follow any additional instructions given to you from your surgeon. Telephone instructions given to __Brittnee___and asked if any additional questions and then verbalized understanding. Patient advised to call surgeon office or pre surgery nurse liaison [phone] if any additional questions.
--- NOTE | 2025-01-02 16:04 | SUR.PREOP ---
CRITICAL SERUM GLUCOSE OF [address] FALLON MADE AWARE. SPOKE W/ PT; PT IS DIABETIC AND HAD BEEN FASTING AT TIME OF LAB DRAW; PT STATES HAS HAD PO INTAKE SINCE AND FEELS WELL.
[2025-01-05] VITALS (12 sets, daily range): BP systolic 99–134; BP diastolic 52–79; PULSE 50–75; RESP 10–18; TEMP 36.1–36.6; O2SAT 98–100; BMI 23.8
--- NOTE | ~2025-01-05 | XR_ITS ---
EXAMINATION: XR retrograde pyelo w/stent BI DATE: 01/05/2025 08:18 INDICATION: Right ureteral stent placement. TECHNIQUE: Fluoroscopic images from a right internal ureteral stent placement are submitted for donnell reina 198 seconds of fluoroscopy time. FINDINGS: There is a right double-J internal ureteral stent projecting in expected position, with proximal [place] loop at the level of the renal pelvis and distal loop in the pelvis within the bladder lumen. IMPRESSION: 1. Right internal ureteral stent placement. Please refer to real-time procedural findings for brisa ls. Reviewed, dictated and finalized at location B. [employer]EL[employer] DEBURRER IMPRESSION: 1. Right internal ureteral stent placement. Please refer to real-time procedu ral findings for details.
--- OUTSIDE RECORDS SUMMARY | 2025-01-05 00:40 | XMS_ITS | Clinical Summary ---
Author Organization [facility] Address [address] [place] [address] Care Team Providers Care Harness Preparer Name Role Phone Izabella Pan COMMUNITY DEVELOPMENT TECHNICIAN Primary Care Provider [phone] Allergies Active Allergy Reactions Criticality Noted Date [...] Takes in the morning Active vitamin D3, cholecalcifero l, 1000 UNIT Tab tablet Take 1 tablet (25 mcg total) by mouth daily. Active LEVEMIR FLEXPEN 100 UNIT/ML PEN INJECT 22 UNITS SUBCUTANEOUSLY IN THE MORNING 11/26/19 24 Active ondansetron (ZOFRAN) 4 MG tabletIndicati ons:Nausea Take 1 tablet (4 mg total) by mouth every 8 (eight) hours as needed for Nausea. 10 tablet 09/13/20 24 Active meclizine (ANTIVERT) 25 MG tabletIndicati ons:Episodic peripheral vertigo Take 1 tablet (25 mg total) by mouth every 8 (eight) hours as needed (vertigo). 30 tablet 11/03/20 24 Active cephALEXin (KEFLEX) 500 MG capsuleIndicat ions:Acute cystitis with hematuria Take 1 capsule (500 mg total) by mouth 2 (two) times daily for 3 days. 6 capsule 12/05/19 25 025 Active Problems Problem Noted Date Diagnosed Date Hypothyroidism 12/03/2012 Type 2 diabetes mellitus ([facility]) 12/03 Encounters Date Type Department Care Team Description 12/06/2024 2:06 PM PRESCHOOL PROGRAM DIRECTOR - 12/06/2024 11:59 PM PRESCHOOL PROGRAM DIRECTOR Hospital Encounter [facility] [address] [place] [address] Hector Ho MD Discharge Disposition: Home or Self Care (Routine Discharge) 12/05/2024 2:00 PM PRESCHOOL PROGRAM DIRECTOR Office Visit [facility] [address] [place] [place] [address] Hector Ho MD Urine (Pt is here for a possible UTI) 12/05/2024 Travel 11/17/2024 11:08 AM PRESCHOOL PROGRAM DIRECTOR - 11/17/2024 11:59 PM PRESCHOOL PROGRAM DIRECTOR Hospital Encounter [facility] [address] [place] [address] Izabella Pan FNP Discharge Disposition: Home or Self Care (Routine Discharge) 11/17/2024 Travel 11/15/[address] [place] [address] Izabella Pan FNP Question 11/03/2024 6:09 AM PRESCHOOL PROGRAM DIRECTOR - 11/03/2024 9:44 AM PRESCHOOL PROGRAM DIRECTOR Emergency [facility] [address] [place] [address] Camilo Meier MD Gomez, Philip Gabriel, MD Back Pain (Abdominal pain) Discharge Disposition: Home or Self Care (Routine Discharge) 11/03/2024 Telephone [facility] [address] [place] [address] Izabella Pan FNP Work Excuse (Work excuse note) 11/03/2024 Travel 11/01/2024 2:34 PM PRESCHOOL PROGRAM DIRECTOR - 11/01/2024 11:59 PM PRESCHOOL PROGRAM DIRECTOR Hospital Encounter [facility] [address] [place] [address] Linda Simons FNP Discharge Disposition: Home or Self Care (Routine Discharge) 10/31/2024 4:20 PM PRESCHOOL PROGRAM DIRECTOR Office Visit [facility] [address] [place] [address] Linda Simons FNP Back Pain; Dysuria (4 days//Pt started AZO 3 days ago. Took it yesterday morning for the last time. ) 10/31/2024 Travel 10/10/[address] [place] [address] Izabella Pan FNP Returned Call 10/07/2024 5:15 AM PRESCHOOL PROGRAM DIRECTOR - 10/07/2024 11:59 PM PRESCHOOL PROGRAM DIRECTOR Hospital Encounter [facility] [address] [place] [address] Izabella Pan FNP Discharge Disposition: Home or Self Care (Routine Discharge) 10/06/2024 1:20 PM PRESCHOOL PROGRAM DIRECTOR Office Visit [address] [place] [address] Izabella Pan FNP Burning With Urination (Burning with urination, started today, some chills, no other symptoms) 10/06/2024 Travel 10/06/[address] [place] [address] Izabella Pan FNP Concerns from Last 3 [...] Sex Assigned at Female 12/05/2024 2:37 PM PRESCHOOL PROGRAM DIRECTOR Legal Sex Female 7:37 PM CDT Gender Identity Not on file Sexual Orientation Not on file Last Filed Vital Signs Vital Sign Reading Time Taken Comments Blood Pressure 126/74 12/05/2024 1:59 PM PRESCHOOL PROGRAM DIRECTOR Pulse 76 12/05/2024 1:59 PM PRESCHOOL PROGRAM DIRECTOR Temperature 37 C (98.6 F) 12/05/2024 1:59 PM PRESCHOOL PROGRAM DIRECTOR Respiratory Rate 16 12/05/2024 1:59 PM PRESCHOOL PROGRAM DIRECTOR Oxygen Saturation 100% 12/05/2024 1:59 PM PRESCHOOL PROGRAM DIRECTOR Inhaled Oxygen Concentration - - Weight 66.7 kg (147 lb) 12/05/2024 1:59 PM PRESCHOOL PROGRAM DIRECTOR Height 170.2 cm (5' 7 ) 12/05/2024 1:59 PM PRESCHOOL PROGRAM DIRECTOR Body Mass Index 23.02 12/05/2024 1:59 PM PRESCHOOL PROGRAM DIRECTOR Plan of Treatment Health Maintenance Due Date [...] Retinopathy Eye Exam 04/05/2024 04/05/2022 COVID-19 Vaccine ( - season) 2024 Influenza Adult (#1) 2024 09/11/2014, 09/23/2013, 09/12/2012, Additional history exists PHQ-2 (Physician [place]) 11/16/2024 09/08/2024 Mammogram Screening 09/16/2026 09/16/2024, 09/14/2023, [...] URINE BACTERIA CULTURE Routine 5 2:00 PM PRESCHOOL PROGRAM DIRECTOR Urine frequency Acute cystitis with hematuria URINALYSIS AUTO DIP Routine 12/05/2024 Urine frequency HC URNLS DIP STICK/TABLET RGNT AUTO W/O MICRO Routine 11/17/2024 11:20 AM PRESCHOOL PROGRAM DIRECTOR Bilateral hydronephrosis Renal impairment URINE BACTERIA CULTURE Routine 5 10:20 AM PRESCHOOL PROGRAM DIRECTOR Bilateral hydronephrosis Renal impairment CT ABD+PEL WO CON STAT 11/03/2024 7:4 5 AM PRESCHOOL PROGRAM DIRECTOR COMPREHENSIVE METABOLIC PANEL STAT 11/03/2024 6:29 AM PRESCHOOL PROGRAM DIRECTOR CBC W/DIFF AUTOMATED STAT 11/03/2024 6:29 AM PRESCHOOL PROGRAM DIRECTOR URINE BACTERIA CULTURE Routine 4 12:00 PM PRESCHOOL PROGRAM DIRECTOR Dysuria Acute cystitis without hematuria URINALYSIS AUTO DIP Routine 10/31/2024 Dysuria URINE BACTERIA CULTURE Routine 4 1:30 PM PRESCHOOL PROGRAM DIRECTOR Acute cystitis with hematuria URINALYSIS AUTO DIP Routine 10/06/2024 Burning with urination MG SCREENING W DELGADO RENAN DIGI Routine 09/16/2024 4:00 PM CDT Screening mammogram, encounter for DIABETIC RETINOPATHY EXAM (NEGATIVE)(SCAN ORDER) Routine 04/05/2022 from Last 3 Months or Most Recently Relevant to Health Maintenance Results * URINE BACTERIA CULTURE (12/06/2024 2:00 PM PRESCHOOL PROGRAM DIRECTOR) Only the most recent of4 resultswithin the time period is included. Pathologist [facility] SPEC DESCRIPTION URINE CLEAN CATCH 12/06/2024 2:06 PM PRESCHOOL PROGRAM DIRECTOR [facility] SPECIAL REQUESTS NO SPECIAL REQUEST 12/06/2024 2:06 PM PRESCHOOL PROGRAM DIRECTOR [facility] CULTURE RESULT NO GROWTH 2 DAYS 12/08/2024 7:46 AM [facility] URINE SPECIMEN OBTAINED BY CLEAN CATCH PROCEDURE / Unknown 12/06/2024 2:00 PM PRESCHOOL PROGRAM DIRECTOR 12/06/2024 2:07 PM PRESCHOOL PROGRAM DIRECTOR us Hector Ho MD MICROBIOLOGY - GENERAL ORDER AL[place]AS Final Result [facility] [address] [place] [address], [place] [phone] [facility] [address] [address] [address] [address], [place] * (ABNORMAL) URINALYSIS AUTO DIP (12/05/2024) Only the most recent of3 resultswithin the time period is included. COLOR (U) YELLOW YELLOW [facility] [address]), [place] TRANSPARENCY CLEAR CLEAR [facility] [address])[place] GLUCOSE (U) >=1000 mg/dl(A) NEGATIVE MG/DL [facility] [address])[place] BILIRUBIN (U) NEGATIVE [facility]GAT[facility] [address])[place] MG/DL (U) NEGATIVE NEGATIVE MG/DL [facility] DR [address])[place] SPECIFIC GRAVITY (U) 1.015 1.001 - 1.035 [facility] DR [address])[place] BLOOD (U) LARGE (Non Hemolyzed, Intact, About 250 rbc/uL)(A) NEGATIVE [facility] DR [address])[place] U PH 5.5 5.0 - 9.0 [facility] [address])[place] PROTEIN (U) 3+ (>=300)(A) NEGATIVE /dL [facility] (201), [place] UROBILINOGEN 0.2 0.2 - 1.0 EU/dL = mg/dL [facility] (201) [place] NITRITES POSITIVE(A) NEGATIVE MG/DL [facility] (201) [place] LEUKOCYTES (U) 1+ (SMALL)(A) NEGATIVE [facility] (201)[place] URINE SPECIMEN OBTAINED BY CLEAN CATCH PROCEDURE / Unknown 12/05/2024 us Hector Ho MD URINE ORDERABLES Final Resul t [facility] (201), [place] [address] [place] [address], [place] [phone] * (ABNORMAL) URINALYSIS (11/17/2024 11:20 AM PRESCHOOL PROGRAM DIRECTOR) SPECIMEN TYPE URINE 11/17/2024 11:24 AM [facility] COLOR (U) LIGHT YELLOW 11/17/2024 2:59 PM [facility] TRANSPARENCY CLEAR 11/17/2024 2:59 PM [facility] SPECIFIC GRAVITY (U) 1.014 1.001 - 1.030 11/17/2024 2:59 PM [facility] U PH 5.5 5.0 - 9.0 11/17/2024 2:59 PM [facility] LEUKOCYTES (U) 500(A) NEGATIVE 11/17/2024 2:59 PM [facility] NITRITES NEGATIVE NEGATIVE 11/17/2024 2:59 PM [facility] PROTEIN RANDOM (U) NEGATIVE <30 MG/DL 11/17/2024 2:59 PM [facility] GLUCOSE (U) 1000(A) NORMAL MG/DL 11/17/2024 2:59 PM [facility] KETONES MG/DL (U) NEGATIVE NEGATIVE MG/DL 11/17/2024 2:59 PM PRESCHOOL PROGRAM DIRECTOR [facility] UROBILINOGEN NORMAL NORMAL MG/DL 11/17/2024 2:59 PM PRESCHOOL PROGRAM DIRECTOR [facility] BILIRUBIN (U) NEGATIVE NEGATIVE MG/DL 11/17/2024 2:59 PM PRESCHOOL PROGRAM DIRECTOR [facility] BLOOD (U) NEGATIVE NEGATIVE 11/17/2024 2:59 PM PRESCHOOL PROGRAM DIRECTOR [facility] WBC/HPF 6(H) <6 /HPF 11/17/2024 2:59 PM PRESCHOOL PROGRAM DIRECTOR [facility] RBC/HPF 1 <6 /HPF 11/17/2024 2:59 PM PRESCHOOL PROGRAM DIRECTOR [facility] SQUAMOUS EPITHELIALS RARE /HPF 11/17/2024 2:59 PM PRESCHOOL PROGRAM DIRECTOR [facility] URINE SPECIMEN OBTAINED BY CLEAN CATCH PROCEDURE / Unknown 11/17/2024 11:20 AM PRESCHOOL PROGRAM DIRECTOR us Izabella Pan COMMUNITY DEVELOPMENT TECHNICIAN URINE ORDERABLES Final Result [facility] [address] [place] [address], [place] [phone] [place] [address], [place] * CT ABD+PEL WO CON (11/03/2024 7:45 AM PRESCHOOL PROGRAM DIRECTOR) Anatomical Region Laterality Modality Abdomen Computed Tomogra phy 11/03/2024 8:25 AM PRESCHOOL PROGRAM DIRECTOR Impressions 11/03/2024 8:42 AM PRESCHOOL PROGRAM DIRECTOR =====IMPRESSION:===== 1. Bilateral hydronephrosis, greater on the [...] 11/03/2024 8:25 AM Narrative 11/03/2024 8:42 AM PRESCHOOL PROGRAM DIRECTOR [address] [place] [address] EXAMINATION: CT Abdomen and Pelvis without contrast [...] Procedure Note Raghav Mohamud MD - 11/03/[address] [place] [address] EXAMINATION: CT Abdomen and Pelvis without contrast [...] (ABNORMAL) COMPREHENSIVE METABOLIC PANEL (11/03/2024 6:29 AM PRESCHOOL PROGRAM DIRECTOR) [facility] GLUCOSE 211(H) 70 - 99 MG/DL 11/03/2024 7:02 AM [facility] BUN 17 7 - 18 MG/DL 11/03/2024 7:02 AM [facility] CREATININE S/P/B 1.23(H) 0.50 - 1.20 MG/DL 11/03/2024 7:02 AM [facility] SODIUM S/P/B 136 136 - 145 MMOL/L 11/03/2024 7:02 AM [facility] POTASSIUM S/P/B 4.5 3.5 - 5.1 MMOL/L 11/03/2024 7:02 AM [facility] CHLORIDE S/P/B 101 100 - 108 MMOL/L 11/03/2024 7:02 AM [facility] CO2 26.4 21.0 - 32.0 MMOL/L 11/03/2024 7:02 AM [facility] CALCIUM S/P/B 9.5 8.5 - 10.1 MG/DL 11/03/2024 7:02 AM [facility] BILIRUBIN TOTAL S/P/B 0.6 0.2 - 1.2 MG/DL 11/03/2024 7:02 AM [facility] Comment: THIS ASSAY IS NOT RECOMMENDED FOR PATIENTS UNDERGOING TREATMENT WITH ELTROMBOPAG DUE TO THE POTENTIAL FOR FALSELY ELEVATED RESULTS. TOTAL PROTEIN S/P/B 7.2 6.4 - 8.2 G/DL 11/03/2024 7:02 AM [facility] ALBUMIN S/P/B 3.8 3.4 - 5.0 G/DL 11/03/2024 7:02 AM [facility] AST 15 15 - 37 U/L 11/03/2024 7:02 AM [facility] ALT 21 14 - 55 U/L 11/03/2024 7:02 AM [facility] ALKALINE PHOSPHATASE S/P/B 100 50 - 136 U/L 11/03/2024 7:02 AM [facility] ANION GAP 8.6 5.0 - 15.0 MMOL/L 11/03/2024 7:02 AM [facility] BUN CREATININE RATIO 13.8 6 - 26 11/03/2024 7:02 AM [facility] A/G RATIO 1.1 1.0 - 2.5 RATIO 11/03/2024 7:02 AM [facility] GFR ESTIMATE 49(L) >90 ML/MIN/1.7 3 M2 11/03/2024 7:02 AM [facility] Comment: NOTE: eGFR is not calculated for patients <18 years of age. This is an estimated GFR calculation using the new CKD EPI creatinine equation without race and so does not require a correction factor for race. This estimated GFR should not be used for calculating drug doses. 11/03/2024 6:29 AM PRESCHOOL PROGRAM DIRECTOR us Camilo Meier MD LABORATORY Final Result [address] [place] [address], * (ABNORMAL) CBC W/DIFF AUTOMATED (11/03/2024 6:29 AM PRESCHOOL PROGRAM DIRECTOR) WBC 8.19 4.50 - 11.00 x10'3/uL 11/03/2024 6:38 AM [facility] RBC 4.39 4.00 - 5.20 x10'6/uL 11/03/2024 6:38 AM [facility] HGB 13.1 12.0 - 16.0 G/DL 11/03/2024 6:38 AM [facility] HCT 37.5(L) 38.0 - 48.0 % 11/03/2024 6:38 AM [facility] MCV 85.4 80.0 - 100.0 FL 11/03/2024 6:38 AM [facility] MCH 29.8 26.0 - 34.0 PG 11/03/2024 6:38 AM [facility] MCHC 34.9 31.0 - 37.0 G/DL 11/03/2024 6:38 AM [facility] RDW 12.4 11.6 - 14.8 % 11/03/2024 6:38 AM [facility] PLT 287 130 - 400 x10'3/uL 11/03/2024 6:38 AM [facility] MPV 10.2 7.0 - 12.0 FL 11/03/2024 6:38 AM [facility] CBC COMMENT AUTOMATED RBC MORPHOLOGY AND PLATELET EVALUATION NORMAL 11/03/2024 6:38 AM [facility] NEUTROPHILS % 62.0 40.0 - 74.0 % 11/03/2024 6:38 AM [facility] LYMPHOCYTES % 26.7 14.0 - 46.0 % 11/03/2024 6:38 AM [facility] MONOCYTES % 7.6 4.0 - 13.0 % 11/03/2024 6:38 AM [facility] EOSINOPHILS 2.9 0.0 - 7.0 % 11/03/2024 6:38 AM [facility] BASOPHILS 0.6 0.0 - 3.0 % 11/03/2024 6:38 AM [facility] IMMATURE GRANS % 0.2 0.0 - 0.43 % 11/03/2024 6:38 AM [facility] NRBC % 0.0 % 11/03/2024 6:38 AM [facility] ABS. NEUTROPHILS TOTAL 5.07 1.69 - 7.81 x10'3/uL 11/03/2024 6:38 AM [facility] ABS. LYMPHOCYTES 2.19 0.21 - 5.42 x10'3/uL 11/03/2024 6:38 AM PRESCHOOL PROGRAM DIRECTOR [facility] ABS. MONOCYTES 0.62 0.04 - 1.37 x10'3/uL 11/03/2024 6:38 AM PRESCHOOL PROGRAM DIRECTOR [facility] ABS. EOSINOPHILS 0.24 0.00 - 0.68 x10'3/uL 11/03/2024 6:38 AM PRESCHOOL PROGRAM DIRECTOR [facility] ABS. BASOPHILS 0.05 0.00 - 0.08 x10'3/uL 11/03/2024 6:38 AM PRESCHOOL PROGRAM DIRECTOR [facility] ABS. IMMATURE GRANULOCYTES 0.02 0.00 - 0.06 x10'3/uL 11/03/2024 6:38 AM [facility] ABS. NUCLEATED RBC'S 0.00 0.00 - 0.01 x10'3/uL 11/03/2024 6:38 AM [facility] 11/03/2024 6:29 AM PRESCHOOL PROGRAM DIRECTOR us Camilo Meier MD LABORATORY Final Result [facility] [address] [place] [address], [place] * MG SCREENING W DELGADO RENAN DIGI (09/16/2024 4:00 PM CDT) Anatomical Region Laterality Modality Breast Bilateral Computed Tomogra phy 09/19/2024 11:2 3 AM PRESCHOOL PROGRAM DIRECTOR Impressions 09/20/2024 5:31 PM PRESCHOOL PROGRAM DIRECTOR ===== IMPRESSION: ===== 1. Stable mammographic appearance with no new findings to suggest malignancy in either breast. Assessment: ACR BI-RADS 2 - BENIGN FINDING(S) Recommendation: 1:Routine Screening Bilateral Comments: Ordered By: JESSY PIEDRA Interpreted By: Juan Nuno, 09/19/2024 11:23 AM Narrative 09/20/2024 5:31 PM PRESCHOOL PROGRAM DIRECTOR [address] [place] [address] EXAMINATION: Digital bilateral screening mammogram with 3-D [...] either breast to suggest malignancy. us Jessy Piedra MD MAMMO Final Result * DIABETIC RETINOPATHY EXAM (NEGATIVE)(SCAN) (04/05/2022) us Documents Scanned SCANNING Final Result [facility] from Last 3 Months or Most Recently Relevant to Health Maintenance Insurance [facility] Advance Directives Documents on File Type Date Recorded Patient Supervisor Transcribing Operators Expl anation Advance Directives and Living Will 12/11/2011 12:00 AM ADVANCED DIRECTIVES Care Teams Harness Preparer Relationship Specialty Start Date End Date Izabella Pan FNP [address] [place] [address] [place] [address] PCP - General Nurse Practitioner Family 10/08/18
--- OUTSIDE RECORDS SUMMARY | 2025-01-05 00:40 | XMS_ITS | Patient Health Record ---
Author Organization [facility] Address [address] [address] [facility] [address], [place] [address] Support Name Relationship Address Phone Brittnee Vargas Guarantor Unknown [phone] Reason For Referral No Information Medications Medication [...] Oral 1 for 90 *Pick strength-form from [employer] for eRX* Active metFORMIN HCl ER 500 MG TAKE FOUR TABLETS BY MOUTH EVERY DAY Oral 02/19/2015 Active Acidophilus take 1 capsule by oral route daily Oral 1 for 90 Active Immunizations Vaccine Route Administration Date Status Comme nts Infuenza, trivalent, recombinant, preservative free Unknown 09/22/2005 Administered migrated LegPa tid= [id number] Date=09/22/2005 Vac= Influenza Problems Problem Type SNOMED Code ICD Code Onset Dates Problem Status W/U Status Risk Notes Problem Hypothyroidism (34493404) Hypothyroidism, unspecified (E03.9) Active confirmed Problem Vitamin D deficiency (70392615) Vitamin D deficiency, unspecified (E55.9) 08/05/20 12 Active confirmed Problem Type II diabetes mellitus without complication (065475389) Type 2 diabetes mellitus without complications (E11.9) 02/02/20 05 Active confirmed Problem Hyperlipidemia (34293158) Hyperlipidemia, unspecified (E78.5) 08/05/20 12 Active confirmed Plan Of Treatment No Information Insurance Providers Payer Name Payer Address Payer Phone Subscriber Number Group Number Insured Name Patient Relationship to Insured Coverage Start Date Coverage End Date DO NOT USE [id number] Brittnee Vargas Self - patient is the insured 5 [facility] [address] [place] [address] [id number] AliciaBrittnee Self - patient is the insured 2 4 DO NOT USE [id number] AliciaBrittnee Self - patient is the insured 1 DO NOT USE [id number] AliciaBrittnee Self - patient is the insured
--- OUTSIDE RECORDS SUMMARY | 2025-01-05 00:40 | XMS_ITS ---
Author Organization [facility] Address [address] [facility] [facility] [address], [place] [address] Care Team Providers Care Electric Train Driver Name Role Phone rlMigrsebastián, zcarlos manuelProvider Unavailable Unav ailable Allergies Allergen (clinical drug [...] Oral 1 for 90 *Pick strength-form from [employer] for eRX* Active metFORMIN HCl ER 500 MG TAKE FOUR TABLETS BY MOUTH EVERY DAY Oral 02/19/2015 Active Acidophilus take 1 capsule by oral route daily Oral 1 for 90 Active Encounters Encounter Location Date Provider Diagnosis [facility] [address] [facility] [address], [place] [address] 09/06/2023 zzzzProvider zzzzMigration Plan Of Treatment No Information Progress Notes * Brittnee MAZA ADOB:1960 (64 yo F)Acc No.[id number]:09/06/2023 Patient: Bakari RANBrittnee :1960 A ge:62 Y S ex:Female Address:[address] [place] [address], [address] Subjective: * Chief Complaints: * E MR-Ciro [...] , Notes to Pharmacist: *Pick strength-form from [employer] for eRX*Taking Aspirin 81 81 MG Tablet [...] , Notes to Pharmacist: *Pick strength-form from [employer] for eRX* * Allergies: S ulfa Antibiotics: Allergy - Onset Date 02/01/2005 Objective: * Vitals: * Physical Examination: Assessment: Plan: * Treatment: * Procedure Codes: * * Date:
--- OUTSIDE RECORDS SUMMARY | 2025-01-05 00:41 | XMS_ITS ---
Author Organization [facility] r[facility]ada Address [address] [facility] [address] [address] [place] [address] Care Team Providers Care Program And Research Coordinator Name Role Phone zcarlos manuelMigrsebastián, zzzcliftonProvider Unavailable Unav ailable REASON FOR VISIT EMR-Ciro Encounters Encounter Location Date Provider Diagnosis [facility] [address] [facility] [address] [place] [address] 09/05/2023 zzzzProvider zzzzMigration Plan Of Treatment Medication [...] 1 Every Day Oral 12/01/2005 BD Disp Marty 30G X 1/2 USE TO GIVE LA [...] * Brittnee MAZA ADOB:1960 (64 yo F)Acc No.[id number]:09/05/2023 Patient: Brittnee OLGUIN :1960 A ge:62 Y S ex:Female Address:[address] [place] [address] * Refills Stop Actos Tablet, 30 MG, [...] MCG, Oral, 180, weekly, Stop BD Disp Marty Miscellaneous, 30G X 1/2, 100.00, USE TO [...]
[2025-01-05 06:16] LABS: Glucose Point of Care 202 mg/dl (65-105)
--- NOTE | 2025-01-05 06:33 | WPDHPUPDATE1 ---
History and Physical Update Update Date/Time: 01/05/25 06:33 History and Physical has been reviewed, including an updated exam of the patient. There are NO changes in the patient's condition. Risks, benefits, and alternatives have been discussed and questions answered. Patient agrees to proceed with procedure.
--- NOTE | 2025-01-05 06:37 | P.PNAN_ITS ---
Anes - Initial Pre Proc Eval Procedure: Operation Date: 01/05/25 07:30 Proposed Procedures p Cystoscopy, Bilateral Retrograde Pyelogram, Bilateral Ureteroscopy with Possible Biopsy, Possible Stent Placement - Etienne Ortiz MD Date/Time: 01/05/25 06:37 Surgeon: Etienne Ortiz MD Pre Op Diagnosis: Bryon Hydronephrosis Patient Data Age: 64 Gender: F Height: 1.68 m Weight: 68.2 kg Allergies Allergy/AdvReac Type Severity Reaction Status Date / Time Sulfa (Sulfonamide AdvReac Severe N/V Unverified 12/28/24 11:36 Antibiotics) Home Medications ?Medication ?Instructions ?Recorded ?Confirmed ?Type cholecalciferol (vitamin D3) 25 1,000 unit PO DAILY 12/28/24 12/28/24 History mcg (1,000 unit) capsule (Vitamin D3) glipizide 2.5 mg tablet, extended 5 mg PO DAILY 12/28/24 12/28/24 History release 24 hr insulin detemir U-100 100 unit/mL 22 unit subcut QAM 12/28/24 12/28/24 History (3 mL) subcutaneous pen levothyroxine 88 mcg tablet 88 mcg PO DAILY 12/28/24 12/28/24 History metformin 500 mg tablet,extended 2,000 mg PO DAILY 12/28/24 12/28/24 History release 24 hr Laboratory Tests 01/05/25 06:10 POC Capillary Glucose 202 H mg/dl (65-105) Patient hx anesthesia problems: none Family hx anesthesia problems: none Results Review: All pre-operative results and documents have been reviewed as part of the pre- operative evaluation. [facility] Past Medical History Medical History (Updated 01/05/25 @ 06:38 by Raghav Reno MD) Hypothyroidism Diabetes Surgical History Surgical History (Updated 01/05/25 @ 06:38 by Raghav Reno MD) H/O: hysterectomy Social History Social History (Updated 01/05/25 @ 06:38 by Raghav Reno MD) Smoking packs per day: 1 Smoking cigarettes per day: 20.0 Years smoked: 10 Smoking pack-years: 10.00 Smoking status: Former smoker Smoking end date: 12/28/90 Living arrangements: with family Spiritual care concerns: No Anes - Eval Final PreProcedure Day of Procedure 01/05/25 06:37 Patient weight: normal Heart: regular rate and rhythm Lungs: clear to auscultation Airway: Mallampati scale class II Neurological: alert and oriented Last oral intake: >/= 8 hours ASA classification: II Emergent: no Anesthetic plan: proceed Anesthesia type and monitoring: general LMA and standard monitoring Results Review: All pre-operative results and documents have been reviewed as part of the pre- operative evaluation. Informed Consent: The patient's anesthetic plan and its attendant risks and benefits were discussed with the patient/family/POA. Questions were solicited and answers provided to the satisfaction of the patient/family/POA.
[2025-01-05] MEDS: LACTATED RINGERS 1,000 ML 30 ML IV CONT (07:26)
[2025-01-05] MEDS: ceFAZolin 2 GM/D5W 50 ML 2 GM/50 ML BAG IVPB (07:26)
[2025-01-05] MEDS: LIDOCAINE 2% GEL UROJET 10 ML PKG MUCOUS MEM (07:26)
--- NOTE | 2025-01-05 08:28 | W.PM.PROC2 ---
Procedure Note - Detailed Date of Procedure 01/05/25 Pre-op Diagnosis Bilateral hydronephrosis Post-op Diagnosis Same Procedure Performed Cystoscopy, bilateral retrograde pyelography, bilateral ureteroscopy, right ureteral dilatation and right ureteral stent placement Surgeon Etienne Ortiz MD Anesthesia General Description of Procedure Patient is brought to the operative suite where she was prepped draped in routine sterile fashion while in dorsal lithotomy position after the uneventful induction of a general LMA anesthetic. Cystoscopy was undertaken with a 21 F rigid cystoscope. Bladder neck and urethra endoscopically normal. Bladder mucosa is perfectly normal. There is no intravesical mucosal hyperemia and there was no intravesical foreign body or neoplasm. She has a single orthotopic ureteral orifice bilaterally with clear efflux of urine. Urine was collected from the bladder for cytology. Bilateral retrograde pyelography shows no filling defects in the ureters. 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 There are no filling defects at the UPJ level. Bilateral ureteroscopy was undertaken with a 7.5 F digital ureteral scope after dilating the distal ureter with an 8 F 10 F dilator. All calices renal pelvis and entire ureter were identified without any findings of hyperemia neoplasm or other pathology. I opted to leave the left UPJ without further manipulation. Because her Lasix renogram suggested more significant obstruction on the right I dilated the UPJ with a 10 cm balloon at 12 atmospheres for 4 minutes and placed a 6F variable length ureteral stent. Scopes wires removed. The patient tolerated the procedure well was taken recovery room good condition. I will plan to leave the right ureteral stent for proximally for 6 weeks and then repeat a renal scan in 3 months. Drains Yes Packing No Pathology None sent Complications No immediate complications Condition Stable
[2025-01-05 08:29] LABS: Glucose Point of Care 197 mg/dl (65-105)
[2025-01-05] MEDS: fentaNYL CITRATE INJ (*CRX) 100 MCG/2 ML VIAL 25 MCG IV PUSH ×2 (08:48→09:15)
[2025-01-05] MEDS: ONDANSETRON INJ 4 MG/2 ML VIAL IV PUSH (09:10)
[2025-01-05] MEDS: diphenhydrAMINE HCl INJ 50 MG/ML VIAL 12.5 MG IV PUSH ×2 (10:14→10:33)
[2025-01-05] MEDS: oxyCODONE HCL (*CRX) 5 MG TAB IR PO (10:27)
[2025-01-05] MEDS: KETOROLAC 30 MG/ML VIAL (*BKC) IV PUSH (11:07)
== END 2025-01-05 11:35 | disposition home or self-care (01) ==
PROVIDERS: PCP Nurse Practitioner; Visit Provider Urology
PROC: (CPT 52352; principal; 2025-01-05 07:30)
DX: N13.30 Unspecified hydronephrosis (principal); E11.9 Type 2 diabetes mellitus without complications; Z79.84 Long term (current) use of oral hypoglycemic drugs; Z79.4 Long term (current) use of insulin; Z87.891 Personal history of nicotine dependence
CPT/HCPCS: 52332; 74420; 82948; 88108; A9270; C1726; C1758; C1769; C2617; J0690; J1100; J1200; J1885; J2003; J2250; J2405; J2704; J3010; J7120; Q9966

== ENCOUNTER 2025-05-25 12:43 | Outpatient (CLI) | payer BC, SELFPAY ==
--- NOTE | ~2025-05-25 | NM_ITS ---
EXAMINATION: NM lasix renal scan DATE: 05/25/2025 13:57 INDICATION: Hydronephrosis TECHNIQUE: 7.8 mCi Tc-99m MAG3 was administered IV. 40 mg furosemide was administered IV immediately afterward. The patient was scanned in the supine position. A posterior abdominal radionuclide angiog alessandro was obtained. A subsequent time course of static images of the kidneys, ureters, and bladder was obtained. COMPARISON: Lasix renal scan dated 12/01/2024 and retrograde myelogram dated 01/05/2025 FINDINGS: The posterior abdominal radionuclide angiogram and sequential static images show normal size, positio n, and morphology of the kidneys. Peak renal parenchymal uptake was 6.5 min in left kidney and 6.5 mi n in right kidney (normal peak 3-5 minutes). The relative early renal uptake was 53% on the left and 47% on the right (<40% is abnormal). No abnormalities of the ureters or bladder are seen. T1/2 for clearance of activity from the left kidney and proximal collecting system was 22 minutes. T1/2 for clearance of activity from the right kidney and proximal collecting system was 28 minutes. Notes on interpretation: T1/2 <10 minutes is normal, 10-15 minutes is low grade obstruction of questi onable clinical significance, 15-20 minutes is partial obstruction that is likely clinically signific ant, >20 minutes is high grade obstruction. Note that false positives may be seen with supine positio ajit, dehydration, severely dilated nonobstructed kidney, atonic collecting system, poor renal functi on, and chronic furosemide use. IMPRESSION: 1. Symmetric kidney function. 2. Slight improvement in still significantly delayed activity clearance from both kidneys with sugge stion of bilateral ureteropelvic junction obstructions on prior retrograde pyelogram. The degree of d elay would be consistent with high-grade obstruction however this could be exaggerated by the dilatio n of the bilateral renal pelvises evident on the prior retrograde pyelograms which likely contributes to some degree of the delayed clearance. Reviewed, dictated and finalized at location A. IMPRESSION: 1. Symmetric kidney function. 2. Slight improvement in still significantly delayed activity clearance from b oth kidneys with suggestion of bilateral ureteropelvic junction obstructions on prior retrograde pyelogram. The degree of delay would be consistent with high- grade obstruction however this could be exaggerated by the dilation of the bila teral renal pelvises evident on the prior retrograde pyelograms which likely co ntributes to some degree of the delayed clearance.
--- OUTSIDE RECORDS SUMMARY | 2025-05-25 12:49 | XMS_ITS | Patient Health Record ---
Author Organization [facility] Address [address], [place] [address] Support Name Relationship Address Phone Brittnee Vargas Guarantor Unknown [phone] Reason For Referral No Information Medications Medication SIG (Take, Route, Frequency, Duration) Notes Start Date End Date Status Levothyroxine Sodium 88 MCG TAKE ONE TABLET BY MOUTH ONCE DAILY Oral 03/01/2015 Active Aspirin 81 81 MG take 1 tablet (81 mg) by oral route once daily Oral 1; Duration: 90 Active Vitamin D3 1000 UNIT take 1 capsule by oral route daily Oral 1; Duration: 90 *Pick strength-form from [employer] for eRX* Active metFORMIN HCl ER 500 MG TAKE FOUR TABLETS BY MOUTH EVERY DAY Oral 02/19/2015 Active Acidophilus take 1 capsule by oral route daily Oral 1; Duration: 90 Active Immunizations Vaccine Route Administration Date Status Comme nts Infuenza, trivalent, recombinant, preservative free Unknown 09/22/2005 Administered migrated LegPa tid= [id number] Date=09/22/2005 Vac= Influenza Problems Problem Type SNOMED Code ICD Code Onset Dates Problem Status W/U Status Risk Notes Problem Hypothyroidism (77067039) Hypothyroidism, unspecified (E03.9) Active confirmed Problem Vitamin D deficiency (45003213) Vitamin D deficiency, unspecified (E55.9) 08/05/20 12 Active confirmed Problem Type II diabetes mellitus without complication (200369267) Type 2 diabetes mellitus without complications (E11.9) 02/02/20 05 Active confirmed Problem Hyperlipidemia (40029274) Hyperlipidemia, unspecified (E78.5) 08/05/20 12 Active confirmed Plan Of Treatment No Information Insurance Providers Payer Name Payer Address Payer Phone Subscriber Number Group Number Insured Name Patient Relationship to Insured Coverage Start Date Coverage End Date DO NOT USE [id number] Brittnee Vargas Self - patient is the insured 5 [facility] Ppo Pos [address] [place] [address] [id number] Brittnee Vargas Self - patient is the insured 2 4 DO NOT USE [id number] Brittnee Vargas Self - patient is the insured 1 DO NOT USE [id number] AliciaBrtitnee chavis Self - patient is the insured
--- OUTSIDE RECORDS SUMMARY | 2025-05-25 12:49 | XMS_ITS | Clinical Summary ---
Author Organization [facility] Address [address] [place] [address] Care Team Providers Care Finance Business Manager Name Role Phone Izabella Pan BOLT LOADER Primary Care Provider [phone] Allergies Active Allergy Reactions Criticality Noted Date Comments Sulfa Antibiotics Vomiting,Unknown 02/01/2005 Medications glipiZIDE XL 2.5 MG 24 hr tablet TAKE 2 TABLETS BY MOUTH ONCE DAILY IN THE MORNING 0 Active RELION PEN NEEDLES 32G X 4 MM Misc daily. 0 Active INSULIN SYRINGE .5CC/29G 29G X 1/2 0.5 ML Misc 2 Active levothyroxine 88 MCG tablet Take 1 tablet (88 mcg total) by mouth daily. 0 Active metFORMIN ER 500 MG 24 hr tablet Take 4 tablets (2,000 mg total) by mouth daily. 0 Active insulin glargine 100 UNIT/ML injection (PEN) Inject 22 Units into the skin nightly at bedtime. Takes in the morning Active vitamin D3, cholecalcifero l, 1000 UNIT Tab tablet Take 1 tablet (25 mcg total) by mouth daily. Active LEVEMIR FLEXPEN 100 UNIT/ML PEN INJECT 22 UNITS SUBCUTANEOUSLY IN THE MORNING 4 Active ondansetron (ZOFRAN) 4 MG tabletIndicati ons:Nausea Take 1 tablet (4 mg total) by mouth every 8 (eight) hours as needed for Nausea. 10 tablet 4 Active meclizine (ANTIVERT) 25 MG tabletIndicati ons:Episodic peripheral vertigo Take 1 tablet (25 mg total) by mouth every 8 (eight) hours as needed (vertigo). 30 tablet 4 Active Active Problems Problem Noted Date Diagnosed Date Hypothyroidism 12/03/2012 Type 2 diabetes mellitus ([facility]) 12/03 Encounters Date Type Department Care Team Description 05/15/2025 11:04 AM CDT - 05/15/2025 12:47 PM CDT Emergency [facility] Emergency Services [facility] [place] [address] [place] [address] Chest Pain Discharge Disposition: Home or Self Care (Routine Discharge) 05/15/2025 Travel from Last 3 Months Immunizations Immunization Administration Dates Next Due Influenza (Generic) 09/11/2014,09/23/2013,2011 [...] Sex Assigned at Female 12/05/2024 2:37 PM MINE EXPERT Legal Sex Female 7:37 PM CDT Gender Identity Not on file Sexual Orientation Not on file Last Filed Vital Signs Vital Sign Reading Time Taken Comments Blood Pressure 119/83 05/15/2025 12:30 PM CDT Pulse 92 05/15/2025 12:30 PM CDT Temperature 36.2 C (97.1 F) 05/15/2025 12:30 PM CDT Respiratory Rate 26 05/15/2025 12:30 PM CDT Oxygen Saturation 100% 05/15/2025 12:30 PM CDT Inhaled Oxygen Concentration - - Weight 68 kg (150 lb) 05/15/2025 11:13 AM CDT Height 170.2 cm (5' 7) 05/15/2025 11:13 AM CDT Body Mass Index 23.49 05/15/2025 11:13 AM CDT Plan of Treatment Health Maintenance Due Date Last Done Comments Cervical Cancer Screening Pap Smear (Age 30 to 64) Every 3 Years 1960 Colorectal Cancer Screening Colonoscopy (10 Years) 1960 Kidney Health Evaluation 1960 Hemoglobin A1C 1960 Lipid Panel 1960 Annual Physical 1963 Hepatitis C 1978 DTaP, Tdap and Td Vaccines (1 - Tdap) 1979 Pneumococcal Vaccine: 50+ Years (1 of 2 - PCV) 1979 Cervical Cancer Screening Pap with HPV Testing (Age 30 to 64) Every 5 Years 1990 Cervical Cancer Screening with HPV 1990 Zoster Vaccines (1 of 2) 2010 RSV Immunization or 60+ Years (1 - Risk 60-74 years 1-dose series) 2020 Diabetes: Retinopathy Eye Exam 04/05/2024 04/05/2022 COVID-19 Vaccine ( season) 2024 PHQ-2 (Physician [place]) 11/16/2024 09/08/2024 Mammogram Screening 09/16/2026 09/16/2024, 09/14/2023, [...] Procedure Name Priority Date/Time Associated Diagnosis Comments CT HEAD WO CON STAT 05/15/2025 11:55 AM CDT XR CHEST PA+LAT STAT 05/15/2025 11:51 AM CDT ECG 12-LEAD Routine 05/15/2025 11:04 AM CDT TROPONIN, QUANT STAT 05/15/2025 11:00 AM CDT COMPREHENSIVE METABOLIC PANEL STAT 05/15/2025 11:00 AM CDT CBC W/DIFF AUTOMATED STAT 05/15/2025 11:00 AM CDT MG SCREENING W DELGADO RENAN DIGI Routine 09/16/2024 4:00 PM CDT Screening mammogram, encounter for DIABETIC RETINOPATHY EXAM (NEGATIVE)(SCAN ORDER) Routine 04/05/2022 from Last 3 Months or Most Recently Relevant to Health Maintenance Results * CT HEAD WO CON (05/15/2025 11:55 AM CDT) Anatomical Region Laterality Modality Head Computed Tomogra phy 05/15/2025 12:0 3 PM CDT Impressions 05/15/2025 12:03 PM CDT IMPRESSION: No acute findings Ordered By: SONY MARIA Interpreted By: Harish Pineda MD, 05/15/2025 12:03 PM Narrative 05/15/2025 12:03 PM CDT [address] [place] [address] CT HEAD WITHOUT CONTRAST Exam date: 05/15/2025 12:03 PM Clinical history: Numbness Technique: 3 mm collimated axial images of the head were obtained without contrast. A dose lowering technique was used for this procedure, which may include, but is not limited to, dose reduction technique, automated exposure control, the use of iterative reconstruction, and ALARA (As Low As Reasonably Achievable) / Image Gently techniques. Comparison: reviewed without prior studies available for comparison. FINDINGS: Images of the head demonstrate no evidence of acute or chronic intracranial hemorrhage. No masses or mass effects are seen. The ventricles and sulci are symmetric. There is no evidence of midline shift. There is normal pan-white differentiation throughout. No extra-axial fluid collections are evident. Bone windows reveal the paranasal sinuses and mastoid air cells to appear clear. There is no evidence of fracture. Procedure Note Harish Pineda MD - 05/15/[address] [place] [address] CT HEAD WITHOUT CONTRAST Exam date: 05/15/2025 12:03 PM Clinical history: Numbness Technique: 3 mm collimated axial images of the head were obtained withoutcontrast. A dose lowering technique was used for this procedure, which mayinclude, but is not limited to, dose reduction technique, automatedexposure control, the use of iterative reconstruction, and ALARA (As LowAs Reasonably Achievable) / Image Gently techniques. Comparison: reviewed without prior studies available for comparison. FINDINGS: Images of the head demonstrate no evidence of acute or chronicintracranial hemorrhage. No masses or mass effects are seen. Theventricles and sulci are symmetric. There is no evidence of midline shift.There is normal pan-white differentiation throughout. No extra-axialfluid collections are evident. Bone windows reveal the paranasal sinuses and mastoid air cells to appearclear. There is no evidence of fracture. IMPRESSION: No acute findings Ordered By: SONY MARIA Interpreted By: Harish Pineda MD, 05/15/2025 12:03 PM us Sony Maria DO CT Final Result * XR CHEST PA+LAT (05/15/2025 11:51 AM CDT) Anatomical Region Laterality Modality Chest Computed Tomogra phy 05/15/2025 11:5 3 AM CDT Impressions 05/15/2025 11:54 AM CDT IMPRESSION: Negative chest Ordered By: SONY MARIA Interpreted By: Harish Pineda MD, 05/15/2025 11:53 AM Narrative 05/15/2025 11:54 AM CDT [address] [place] [address] 2 VIEWS OF THE CHEST Clinical history: Tingling and numbness Comparison: March 11, 2017 2 views of the chest demonstrate the cardiac silhouette to be normal in size and appears stable. The pulmonary vessels appear normal. The Lungs are clear. No consolidations or effusions are seen. Procedure Note Harish Pineda MD - 05/15/[address] [place] [address] 2 VIEWS OF THE CHEST Clinical history: Tingling and numbness Comparison: March 11, 2017 2 views of the chest demonstrate the cardiac silhouette to be normal insize and appears stable. The pulmonary vessels appear normal. The Lungsare clear. No consolidations or effusions are seen. IMPRESSION: Negative chest Ordered By: SONY MARIA Interpreted By: Harish Pineda MD, 05/15/2025 11:53 AM Sony Maria DO GENERAL IMAGING Final Result * ECG 12 lead (05/15/2025 11:04 AM CDT) 05/15/2025 11:0 4 AM CDT Narrative [facility] [place] [facility] - 05/15/2025 9:36 PM CDT HFG Test Date: 2025-05-15 Pat Name: RAZIA MAZA Department: 100 Room: Gender: Female Assembler For Puller Over Hand: [place] : 1960 Requested By: SONY MARIA Order Number: [id number] Reading MD: Jayy Good Measurements Intervals [place] Rate: 87 P: 62 FL: 153 QRS: 38 QRSD: 84 T: 42 QT: 341 QTc: 412 Interpretive Statements SINUS RHYTHM LOW QRS VOLTAGE IN PRECORDIAL LEADS [QRS DEFLECTION < 1.0 mV IN CHEST LEADS] WARNING: DATA QUALITY MAY AFFECT INTERPRETATION Procedure Note Jayy Good MD - 05/15/2025 HFG Test Date: 2025-05-15 Pat Name: RAZIA MAZA Department: 100 Room: Gender: Female Assembler For Puller Over Hand: [place] : 1960 Requested By: SONY MARIA Order Number: [id number] Reading MD: Jayy Good Measurements Intervals [place] Rate: 87 P: 62 FL: 153 QRS: 38 QRSD: 84 T: 42 QT: 341 QTc: 412 Interpretive Statements SINUS RHYTHM LOW QRS VOLTAGE IN PRECORDIAL LEADS [QRS DEFLECTION < 1.0 mV IN CHESTLEADS] WARNING: DATA QUALITY MAY AFFECT INTERPRETATION us Sony Maria DO ECG ORDERABLES Final Result [address] [place] [address] * (ABNORMAL) COMPREHENSIVE METABOLIC PANEL (05/15/2025 11:00 AM CDT) [facility] GLUCOSE 91 70 - 99 MG/DL 05/15/2025 12:[address] [facility] BUN 18 7 - 18 MG/DL 05/15/2025 12:[address] [facility] CREATININE S/P/B 1.17 0.50 - 1.20 MG/DL 05/15/2025 12:[address] [facility] SODIUM S/P/B 139 136 - 145 MMOL/L 05/15/2025 12:[address] [facility] POTASSIUM S/P/B 3.9 3.5 - 5.1 MMOL/L 05/15/2025 12:[address] [facility] CHLORIDE S/P/B 102 100 - 108 MMOL/L 05/15/2025 12:[address] [facility] CO2 31.4 21.0 - 32.0 MMOL/L 05/15/2025 12:[address] [facility] CALCIUM S/P/B 9.4 8.5 - 10.1 MG/DL 05/15/2025 12:[address] [facility] BILIRUBIN TOTAL S/P/B 0.5 0.2 - 1.2 MG/DL 05/15/2025 12:[address] [facility] Comment: THIS ASSAY IS NOT RECOMMENDED FOR PATIENTS UNDERGOING TREATMENT WITH ELTROMBOPAG DUE TO THE POTENTIAL FOR FALSELY ELEVATED RESULTS. TOTAL PROTEIN S/P/B 7.5 6.4 - 8.2 G/DL 05/15/2025 12:[address] [facility] ALBUMIN S/P/B 4.1 3.4 - 5.0 G/DL 05/15/2025 12:[address] [facility] AST 20 15 - 37 U/L 05/15/2025 12:[address] [facility] ALT 28 14 - 55 U/L 05/15/2025 12:[address] [facility] ALKALINE PHOSPHATASE S/P/B 97 50 - 136 U/L 05/15/2025 12:[address] [facility] ANION GAP 5.6 5.0 - 15.0 MMOL/L 05/15/2025 12:[address] [facility] BUN CREATININE RATIO 15.4 6 - 26 05/15/2025 12:[address] [facility] A/G RATIO 1.2 1.0 - 2.5 RATIO 05/15/2025 12:[address] [facility] GFR ESTIMATE 52(L) >90 ML/MIN/1.7 3 M2 05/15/2025 12:[address] [facility] Comment: NOTE: eGFR is not calculated for patients <18 years of age. This is an estimated GFR calculation using the new CKD EPI creatinine equation without race and so does not require a correction factor for race. This estimated GFR should not be used for calculating drug doses. 05/15/2025 11:0 0 AM CDT Sony Maria DO LABORATORY Final Result [address] [place] [address], * (ABNORMAL) CBC W/DIFF AUTOMATED (05/15/2025 11:00 AM CDT) WBC 8.33 4.50 - 11.00 x10'3/uL 05/15/2025 11:36 AM [address]T [facility] RBC 4.15 4.00 - 5.20 x10'6/uL 05/15/2025 11:36 AM CDT [facility] HGB 12.3 12.0 - 16.0 G/DL 05/15/2025 11:36 AM CDT [facility] HCT 36.4(L) 38.0 - 48.0 % 05/15/2025 11:36 AM CDT [facility] MCV 87.7 80.0 - 100.0 FL 05/15/2025 11:36 AM CD[address] [facility] MCH 29.6 26.0 - 34.0 PG 05/15/2025 11:36 AM CDT [facility] MCHC 33.8 31.0 - 37.0 G/DL 05/15/2025 11:36 AM CDT [facility] RDW 12.7 11.6 - 14.8 % 05/15/2025 11:36 AM CDT [facility] PLT 292 130 - 400 x10'3/uL 05/15/2025 11:36 AM CDT [facility] MPV 10.7 7.0 - 12.0 FL 05/15/2025 11:36 AM CD[address] [facility] CBC COMMENT AUTOMATED RBC MORPHOLOGY AND PLATELET EVALUATION NORMAL 05/15/2025 11:36 AM [address] [facility] NEUTROPHILS % 61.3 40.0 - 74.0 % 05/15/2025 11:36 AM CD[address] [facility] LYMPHOCYTES % 25.2 14.0 - 46.0 % 05/15/2025 11:36 AM CDT [facility] MONOCYTES % 8.9 4.0 - 13.0 % 05/15/2025 11:36 AM CDT [facility] EOSINOPHILS 3.8 0.0 - 7.0 % 05/15/2025 11:36 AM CD[address] [facility] BASOPHILS 0.7 0.0 - 3.0 % 05/15/2025 11:36 AM CDT [facility] IMMATURE GRANS % 0.1 0.0 - 0.43 % 05/15/2025 11:[address] AM [address] [facility] NRBC % 0.0 % 05/15/2025 11:36 AM CDT [facility] ABS. NEUTROPHILS TOTAL 5.10 1.69 - 7.81 x10'3/uL 05/15/2025 11:[address] [facility] ABS. LYMPHOCYTES 2.10 0.21 - 5.42 x10'3/uL 05/15/2025 11:36 AM CD[address] [facility] ABS. MONOCYTES 0.74 0.04 - 1.37 x10'3/uL 05/15/2025 11:36 AM CDT [facility] ABS. EOSINOPHILS 0.32 0.00 - 0.68 x10'3/uL 05/15/2025 11:36 AM CD[address] [facility] ABS. BASOPHILS 0.06 0.00 - 0.08 x10'3/uL 05/15/2025 11:36 AM [address] [facility] ABS. IMMATURE GRANULOCYTES 0.01 0.00 - 0.06 x10'3/uL 05/15/2025 11:[address] [facility] ABS. NUCLEATED RBC'S 0.00 0.00 - 0.01 x10'3/uL 05/15/2025 11:36 AM CDT [facility] 05/15/2025 11:0 0 AM CDT Sony Maria DO LABORATORY Final Result [address] [place] [address], * TROPONIN, QUANT (05/15/2025 11:00 AM CDT) TROPONIN I HIGH SENSITIVITY <4 0 - 54 ng/L 05/15/2025 12:12 PM CDT [facility] Comment: HIGH DOSES OF BIOTIN, TROPONIN-SPECIFIC AUTOANTIBODIES, AND ANTIBODY THERAPY CONTAINING HAMA MAY INTERFERE WITH THIS TEST RESULT. CORRELATION TO CLINICAL HISTORY AND PRESENTATION RECOMMENDED. 05/15/2025 11:0 0 AM CDT us Sony Maria DO LABORATORY Final Result [address] [place] [address], [place] * MG SCREENING W DELGADO RENAN DIGI (09/16/2024 4:00 PM CDT) Anatomical Region Laterality Modality Breast Bilateral Computed Tomogra phy 09/19/2024 11:2 3 AM MINE EXPERT Impressions 09/20/2024 5:31 PM MINE EXPERT ===== IMPRESSION: ===== 1. Stable mammographic appearance with no new findings to suggest malignancy in either breast. Assessment: ACR BI-RADS 2 - BENIGN FINDING(S) Recommendation: 1:Routine Screening Bilateral Comments: Ordered By: JESSY PIEDRA Interpreted By: Juan Nuno, 09/19/2024 11:23 AM Narrative 09/20/2024 5:31 PM MINE EXPERT [address] [place] [address] EXAMINATION: Digital bilateral screening mammogram with 3-D [...] calcifications in either breast to suggest malignancy. Jessy Piedra MD MAMMO Final Result * DIABETIC RETINOPATHY EXAM (NEGATIVE)(SCAN) (04/05/2022) us Documents Scanned SCANNING Final Result [facility] from Last 3 Months or Most Recently Relevant to Health Maintenance Insurance [facility] Advance Directives Documents on File Type Date Recorded Patient Quality Control Technician Expl anation Advance Directives and Living Will 12/11/2011 12:00 AM ADVANCED DIRECTIVES Care Teams Finance Business Manager Relationship Specialty Start Date End Date Izabella Pan FNP [address] [place] [address] [place] [address] PCP - General Nurse Practitioner Family 10/08/18
== END 2025-05-25 12:44 | disposition home or self-care (01) ==
PROVIDERS: PCP Nurse Practitioner; Visit Provider Urology
DX: N13.30 Unspecified hydronephrosis (principal)
CPT/HCPCS: 78708; A9562; J1938